=== PATIENT | male | born 1940 | race Asian ===

== ENCOUNTER 2020-05-15 17:52 | Inpatient (IN) | payer MEDICARE ==
[2020-05-15] MEDS ORDERED: Albuterol Sulfate 2.5 mg/3 ml Neb ONE (18:16)
[2020-05-15] MEDS ORDERED: cefTRIAXone\\ROCEPHIN 2 GM VIAL ONE (18:26)
[2020-05-15] MEDS ORDERED: Azithromycin 500 MG VIAL ONE (18:26)
[2020-05-15] MEDS ORDERED: Dexamethasone 10 MG/ML VIAL ONE (18:26)
[2020-05-15] MEDS ORDERED: Magnesium 2 GM/50 ML BAG (IN WATER) ONE (18:26)
[2020-05-15] MEDS ORDERED: Lorazepam 2 MG/ML VIAL ONE ×2 (18:36→19:04)
[2020-05-15 18:37] LABS: #Basophils 0.1 thou/uL (0.0-0.2); #Eosinphils 0.1 thou/uL (0.0-0.7); #Lymphocytes 3.5 thou/uL (1.20-3.40); #Neutrophils 7.9 thou/uL (1.40-6.50); %Basophils 0.7 % (0.0-1.0); %Eosinophils 1.1 % (0.0-10.0); %Lymphocytes 27.6 % (21.0-51.0); %Monocytes 8.2 % (0.0-10.0); %Neutrophils 62.5 % (42.0-75.0); Hemoglobin 14.5 g/dL (14.0-18.0); Mean Corpuscular HGB CONC 31.2 g/dL (32.0-36.0); Mean Corpuscular Hemoglobin 26.7 pg (27.0-31.0); Mean Corpuscular Volume 85.7 fL (78.0-98.0); Mean Platelet Volume 8.3 fL (7.4-10.4); Platelet Count 292 thou/uL (130-400); RBC Distribution Width 13.3 % (11.5-14.5); Red Blood Cell (RBC) Count 5.41 mill/uL (4.70-6.10); White Blood Cell (WBC) Count 12.6 thou/uL (4.8-10.8)
--- NOTE | 2020-05-15 18:42 | RAD ---
Chest AP view INDICATION: Shortness of breath with cough and chest tightness COMPARISON: None FINDINGS: Lungs: There is bilateral lobe airspace disease, right greater than left. Cardiac silhouette: There is cardiomegaly Pulmonary vasculature: There is pulmonary vascular congestion and bilateral interstitial edema Pleural spaces: There are small bilateral pleural effusions. Upper abdomen: No abnormality seen. Osseous structures: No acute osseous abnormality. Additional findings: There is soft tissue calcification overlying the anterior chest wall which is n onspecific. IMPRESSION: 1. Findings suspicious for mild CHF. 2. Bibasilar airspace disease, right greater than left, may reflect airspace edema; however, pneumoni a or aspiration could have a similar appearance. Recommend correlation with patient's clinical examination.
[2020-05-15] MEDS ORDERED: Rocuronium Bromide 10 MG/ML (10ML VIAL) ONE (18:55)
[2020-05-15 18:59] LABS: ALT (SGPT) 34 U/L (8-55); AST (SGOT) 53 U/L (5-34); Albumin 4.3 g/dL (3.4-4.8); Alkaline Phosphatase 80 U/L (40-110); Anion Gap 21 mmol/L (10-20); BUN (Urea Nitrogen) 16 mg/dL (8.4-25.7); Bilirubin, Total 0.9 mg/dL (0.2-1.2); CK (CPK) 622 U/L (30-200); Calc. Creatinine Clearance 0 mL/min (70-130); Calcium 8.9 mg/dL (7.8-10.44); Carbon Dioxide 18 mmol/L (23-31); Chloride 104 mmol/L (98-107); Globulin 2.8 g/dL (2.4-3.5); Glucose 176 mg/dL (83-110); Lipase 20 U/L (8-78); Potassium 3.7 mmol/L (3.5-5.1); Protein, Total 7.1 g/dL (5.8-8.1); Sodium 139 mmol/L (136-145)
[2020-05-15 19:32] LABS: CKMB 21.5 ng/mL (0-6.6)
[2020-05-15] MEDS ORDERED: fentaNYL Citrate/PF 2,000 MCG in Sodium Chloride 0.9% 60 ML IV SCH (19:45)
--- NOTE | 2020-05-15 19:48 | RAD ---
Chest AP view INDICATION: History of central line placement COMPARISON: Prior examination performed on May 15, 2020 at 6:22 PM FINDINGS: Lungs: There is worsening bilateral perihilar airspace disease suspicious for worsening airspace marilia ma. Airspace opacities within both lower lobes persists. Cardiac silhouette: Cardiomegaly is similar Pulmonary vasculature: There is worsening pulmonary vascular congestion Pleural spaces: There are worsening small bilateral pleural effusions, right greater than left Upper abdomen: No abnormality seen. Osseous structures: No acute osseous abnormality. Additional findings: The patient has been intervally intubated. The distal of the ET tube is 4.3 cm from the wei. There is gastric catheter placement with the tip of the catheter is seen near the gastroesophageal junction. Recommend advancement. There is a new left subclavian central venous elan ter projecting in the region of the SVC. No definite pneumothorax is demonstrated. IMPRESSION: 1. Findings suspicious for worsening CHF. 2. Persistent bibasilar airspace opacities may reflect airspace edema, pneumonia or aspiration. 3. Interval intubation with gastric catheter and left subclavian central venous catheter placement. N o pneumothorax is demonstrated. The gastric catheter tip projects in the region of the GE junction. Recommend advancement.
[2020-05-15] MEDS ORDERED: Acetaminophen 650 MG Suppository PR PRN (19:50)
[2020-05-15] MEDS ORDERED: Ondansetron ODT 4 MG TAB PO PRN (19:50)
[2020-05-15] MEDS ORDERED: Ventilator Sedation Protocol 1 EACH FS SCH (19:50)
--- NOTE | 2020-05-15 19:56 | PDOC.HHP ---
Hospitalist HPI - History of Present Illness dyspnea cough History of Present Illness: most of the history was obtain from EMR and ED records, during my evaluation patient was sedated and on MV, no family members were present at the moment of my evaluation. Case of an 79-year-old gentleman with apparent no pmhx of chronic conditions arrives in severe distress with O2 sat 76 and heavy work of breathing with tachypnea labored in the 30s he is able to speak Turkish but not very responsive he is also tachycardic at 160 and blood pressure 190 did not complain of any chest pain no known Covid exposure. patient was initally placed in respiratory support with bipap but did not tolerate well and had to be placed on MV. patient also presented with sepsis paramaters and sepsis bundles where initialled, venancio dixon was called for further evaluation and management. Hospitalist ROS - Review of Systems ROS unobtainable: due to endotracheal tube Hospitalist History - Past Surgical History Other Surgical History: unable to asses due to MV - Family History Other Family History: unable to asses due to MV - Social History Other Social History: unable to asses due to MV - Exam General Appearance: ill appearing Eye: PERRL, anicteric sclera ENT: normocephalic atraumatic, no oropharyngeal lesions Neck: supple, symmetric, no thyromegaly Heart: RRR, no murmur, no gallops, no rubs Respiratory: rales Respiratory - other findings: decreased lung sound Gastrointestinal: soft, non-tender, non-distended, normal bowel sounds Extremities: no cyanosis, no clubbing, no edema Neurological - other findings: unable to asses due to sedations Musculoskeletal: normal tone, no muscle wasting Psychiatric - other findings: sedated Hospitalist Results - Labs Result Diagrams: 05/15/20 18:21 05/15/20 18:21 Lab results: WBC 12.6 thou/uL (4.8-10.8) H 05/15/20 18:21 Hgb 14.5 g/dL (14.0-18.0) 05/15/20 18:21 Hct 46.4 % (42.0-52.0) 05/15/20 18:21 MCV 85.7 fL (78.0-98.0) 05/15/20 18:21 Plt Count 292 thou/uL (130-400) 05/15/20 18:21 Neutrophils % 62.5 % (42.0-75.0) 05/15/20 18:21 Sodium 139 mmol/L (136-145) 05/15/20 18:21 Potassium 3.7 mmol/L (3.5-5.1) 05/15/20 18:21 Chloride 104 mmol/L (98-107) 05/15/20 18:21 Carbon Dioxide 18 mmol/L (23-31) L 05/15/20 18:21 BUN 16 mg/dL (8.4-25.7) 05/15/20 18:21 Creatinine 1.80 mg/dL (0.7-1.3) H 05/15/20 18:21 Glucose 176 mg/dL (83-110) H 05/15/20 18:21 Lactic Acid 8.6 mmol/L (0.5-2.2) H* 05/15/20 18:58 Calcium 8.9 mg/dL (7.8-10.44) 05/15/20 18:21 Total Bilirubin 0.9 mg/dL (0.2-1.2) 05/15/20 18:21 AST 53 U/L (5-34) H 05/15/20 18:21 ALT 34 U/L (8-55) 05/15/20 18:21 Alkaline Phosphatase 80 U/L (40-110) 05/15/20 18:21 Creatine Kinase 622 U/L (30-200) H 05/15/20 18:21 CK-MB (CK-2) 21.5 ng/mL (0-6.6) H* 05/15/20 18:21 Troponin I 11.588 ng/mL (< 0.028) H* 05/15/20 18:21 B-Natriuretic Peptide 1261.2 pg/mL (0-100) H 05/15/20 18:21 Serum Total Protein 7.1 g/dL (5.8-8.1) 05/15/20 18:21 Albumin 4.3 g/dL (3.4-4.8) 05/15/20 18:21 Lipase 20 U/L (8-78) 05/15/20 18:21 Hospitalist H&P A/P - Problem (1) Acute respiratory failure requiring reintubation Code(s): J96.00 - ACUTE RESPIRATORY FAILURE, UNSP W HYPOXIA OR HYPERCAPNIA Status: Acute (2) Sepsis Code(s): A41.9 - SEPSIS, UNSPECIFIED ORGANISM Status: Acute (3) Acute decompensated heart failure Code(s): I50.9 - HEART FAILURE, UNSPECIFIED Status: Acute (4) Pneumonia Code(s): J18.9 - PNEUMONIA, UNSPECIFIED ORGANISM Status: Acute (5) Acute renal failure Status: Acute (6) NSTEMI (non-ST elevated myocardial infarction) Code(s): I21.4 - NON-ST ELEVATION (NSTEMI) MYOCARDIAL INFARCTION Status: Acute - Plan Plan: 79y/o famele with apparent nphx who present acute respiratory failure requiring MV acute respiratory failure - did not tolerate bipap - started on MV - sedation protocol - pulmonology consulted - seems to be of multifactorial etiology, heart failure nstemi pnuemonia sepsis secondary to pneumonia - elevated wbc + Elevated LA + cxr suspicious for pneumonia - sepsis bundles started. 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
[2020-05-15 20:01] LABS: Actual Bicarbonate (HCO3a) 16.8 mEq/L (22-28); Analyzer IN Cardio ER; Base Excess (BEa) -9.3 mEq/L (-2.0 to +3.0); CO2 Tension 37.1 mmHg (35.0-45.0); Calcium, Ionized (arterial) 1.11 mmol/L (1.12-1.30); Carboxyhemoglobin (COHb) 0.1 gm% (0.0-3.0); Hemoglobin (Hb) 13.3 g/dL (14.0-18.0); O2 Tension (PaO2), arterial 110.4 mmHg (> 70.0); Potassium - ABG Lab 3.74 mmol/L (3.70-5.30); pH, Arterial 7.27 (7.35-7.45)
[2020-05-15 20:04] LABS: ALV-art Gradient 556.225 mmHg (0-20); Puncture Site RRA
[2020-05-15] MEDS ORDERED: Metoprolol Tartrate 5 MG/5 ML VIAL ONE (20:06)
[2020-05-15] MEDS ORDERED: Aspirin Chewable 81 MG TAB ONE (20:06)
[2020-05-15] MEDS ORDERED: Enoxaparin Sodium 80 MG/0.8 ML SYRINGE ONE (20:06)
[2020-05-15 20:18] LABS: SARS-CoV-2 NAA Rapid Test Not Detected (NotDetected)
[2020-05-15] MEDS ORDERED: DOBUTamine 500 mg/250 ml 250 ML ONE (21:00)
[2020-05-15 22:35] LABS: Lactic Acid 1.4 mmol/L (0.5-2.2)
[2020-05-15] MEDS: Sodium Chloride 0.9% 1,000 ML IV SCH (23:26)
[2020-05-15] MEDS: Atorvastatin Calcium 40 MG TAB PO SCH (23:29)
[2020-05-15] MEDS: Famotidine/PF 20 mg/2ml Vial SLOW IVP SCH (23:29)
[2020-05-16 00:24] LABS: Bacteria/HPF None Seen HPF (None Seen); Bilirubin Negative (Negative); Blood, Urine Trace (Negative); Clarity Clear (Clear); Glucose, Urine (Dipstick) Normal (Negative); Ketone, Urine 10 mg/dL (Negative); Leukocyte Negative Leu/uL (Negative); Nitrite Negative (Negative); Protein, Urine (Dipstick) 30 mg/dL (Neg-Trace); Squamous Epithelial 0-3 HPF (0-3); Urobilinogen Normal mg/dL (Less than 2); WBC/HPF 0-3 HPF (0-3); pH, Urine 5.5 (5.0-9.0)
[2020-05-16 00:26] LABS: Urine Culture Reflex No No
[2020-05-16 01:24] LABS: Critical Call Chem Troponin I RESULT DECREASING; Troponin I 10.127 ng/mL (< 0.028)
[2020-05-16 04:04] LABS: Hemoglobin A1c 5.3 % (4.0-6.0)
[2020-05-16 04:13] LABS: Band 3 % (5-11); Hemoglobin 11.6 g/dL (14.0-18.0); Hypochromia SLIGHT = 6-15 cells (100X) (0-5/hpf); Lymphocytes 3 % (21-51); MDiff Complete? YES; Mean Corpuscular HGB CONC 32.7 g/dL (32.0-36.0); Mean Corpuscular Hemoglobin 27.9 pg (27.0-31.0); Mean Corpuscular Volume 85.2 fL (78.0-98.0); Mean Platelet Volume 8.2 fL (7.4-10.4); Monocytes 2 % (0-10); Neutrophil 91 % (42-75); Platelet Count 212 thou/uL (130-400); Platelet Morphology Comment Appears Adequate; Reactive Lymphocytes 1 % (0-10); Red Blood Cell (RBC) Count 4.16 mill/uL (4.70-6.10); White Blood Cell (WBC) Count 9.7 thou/uL (4.8-10.8)
[2020-05-16] MEDS ORDERED: Fentanyl BOLUS 250 ML IVPB PRN (04:15)
[2020-05-16] MEDS ORDERED: fentaNYL Citrate/PF 2,000 MCG in Sodium Chloride 0.9% 60 ML IV SCH (04:15)
[2020-05-16] MEDS ORDERED: Propofol BOLUS 1,000 MG/100 ML VIAL IV PRN (04:15)
[2020-05-16] MEDS ORDERED: DISCONTINUE PREVIOUS NARCOTIC PAIN MEDICATIONS AND BENZODIAZEPINES FS SCH (04:15)
[2020-05-16] MEDS ORDERED: Propofol 1,000 MG/100 ML VIAL IV PRN (04:15)
[2020-05-16] MEDS: DOBUTamine 500 mg/250 ml 500 MG in Premix Bag 1 BAG IVPB SCH ×2 (04:37→17:59)
[2020-05-16 07:50] LABS: ALT (SGPT) 27 U/L (8-55); AST (SGOT) 64 U/L (5-34); Albumin 3.1 g/dL (3.4-4.8); Alkaline Phosphatase 56 U/L (40-110); Anion Gap 16 mmol/L (10-20); BUN (Urea Nitrogen) 18 mg/dL (8.4-25.7); Bilirubin, Total 0.6 mg/dL (0.2-1.2); Calc. Creatinine Clearance 46 mL/min (70-130); Calcium 7.6 mg/dL (7.8-10.44); Carbon Dioxide 18 mmol/L (23-31); Cardiac Risk 6.8 (Less than 4.5); Chloride 110 mmol/L (98-107); Cholesterol 176 mg/dl (< 200 Desired); Globulin 2.5 g/dL (2.4-3.5); Glucose 138 mg/dL (83-110); HDL Cholesterol 26 mg/dL (>60 Neg Risk); LDL Cholesterol, Calculated 128 mg/dL; Magnesium 2.2 mg/dL (1.6-2.6); Potassium 4.5 mmol/L (3.5-5.1); Protein, Total 5.6 g/dL (5.8-8.1); Sodium 139 mmol/L (136-145); Triglycerides 110 mg/dL (Less than 150)
[2020-05-16] MEDS: Lorazepam 2 MG/ML VIAL SLOW IVP PRN ×2 (08:14→14:26)
[2020-05-16 08:35] LABS: Actual Bicarbonate (HCO3a) 19.5 mEq/L (22-28); Base Excess (BEa) -4.6 mEq/L (-2.0 to +3.0); CO2 Tension 32.9 mmHg (35.0-45.0); Carboxyhemoglobin (COHb) 0.2 gm% (0.0-3.0); Hemoglobin (Hb) 11.9 g/dL (14.0-18.0); O2 Tension (PaO2), arterial 118.4 mmHg (> 70.0); Potassium - ABG Lab 4.19 mmol/L (3.70-5.30); pH, Arterial 7.39 (7.35-7.45)
[2020-05-16 08:37] LABS: ALV-art Gradient 196.975 mmHg (0-20); Puncture Site LRA
--- NOTE | 2020-05-16 08:44 | ULT ---
Exam: Bilateral renal ultrasound complete: HISTORY: Acute kidney injury COMPARISON: None FINDINGS: Right kidney: 8.4 x 3.6 x 4.5 cm Left kidney: 9.7 x 4.6 x 4.2 cm No renal hydronephrosis. Several echogenic foci within the left kidney, nonspecific, one of these may have an associated faint shadowing could represent a calculus. No solid or cystic renal mass. Carter catheter within the bladder. IMPRESSION: Nonspecific echogenic foci within the left kidney one of which may be shadowing and represent a nonob structing renal calculus. Depending upon concern, follow-up CT abdomen and pelvis without IV contrast should be considered for further assessment.
[2020-05-16] MEDS ORDERED: FLU VACC QS2020-21(65YR UP)/PF 240 MCG/0.7 ML SYRINGE IM ONE (09:00)
[2020-05-16] MEDS: Enoxaparin Sodium 80 MG/0.8 ML SYRINGE SC SCH (09:13)
[2020-05-16] MEDS: Aspirin 325 MG TAB PO SCH (09:14)
--- NOTE | 2020-05-16 09:39 | CON ---
DATE OF CONSULTATION: 05/16/2020 SUBJECTIVE: Mr. Lester is a 79-year-old male, who presented to the ER for an acute respiratory failure. He was found to be hypoxemic. He was subsequently intubated and placed on ventilator support. During the initial workup, he was noted to have an acute kidney injury as well as an elevated troponin I. We are now following up this patient for the acute kidney injury. REVIEW OF SYSTEMS: Not obtainable since the patient is intubated on ventilator support. As per history, the patient was experiencing shortness of breath. MEDICATIONS: The patient is currently on IV dobutamine drip. Also on; 1. Aspirin 325 mg tablet once a day. 2. Azithromycin 500 mg IV q.24 hours. 3. Ceftriaxone 2 g IV q.24 hours. 4. Lovenox 70 mg once a day. 5. Diprivan drip. PAST MEDICAL HISTORY: No significant medical problems. PAST SURGICAL HISTORY: Unknown. ALLERGIES: UNKNOWN. SOCIAL HISTORY: The patient lives in [place]. Has one child, Benitez who lives in [place]. FAMILY HISTORY: Noncontributory. PHYSICAL EXAMINATION: VITAL SIGNS: Blood pressure is noted at 109/72 with a heart rate of 110, FiO2 at 50%, respiratory rate 16. GENERAL: The patient is sedated, intubated on ventilator support. SKIN: Adequate turgor. HEENT: He has pinkish conjunctivae. Anicteric sclerae. No neck mass. No carotid bruits. No JVD. CHEST: No deformities. LUNGS: Harsh breath sounds. Bibasilar crackles. HEART: Tachycardic. No murmur. No gallops. No rubs. ABDOMEN: Globular, soft, nontender. No masses. EXTREMITIES: No edema. No deformities. NEUROLOGICAL: The patient is sedated. LABORATORY DATA: Laboratories of May 16, 2020; white count 9.7, hemoglobin 11.6. Sodium 139, potassium 4.5, chloride 110, carbon dioxide 18, BUN 18, creatinine 1.41, glucose 138, calcium 7.6, phosphorus 3. AST 64, ALT 27. Troponin I is 12.1. Albumin 3.1. COVID testing was noted to be negative. On May 15, 2020, creatinine 1.8. Chest x-ray shows diffuse infiltrates. Renal ultrasound showed no obstruction. Finding of calcifications that could be from nephrolithiasis. Urinalysis showed positive for granular casts, specific gravity was 1.020, rbc 11 to 20, wbc 0 to 3, protein is 30. ASSESSMENT AND PLAN: 1. Acute kidney injury-consider the possibility of a superimposed acute tubular necrosis. The finding of granular casts suggestive of an acute tubular injury. Creatinine is actually improved with initiation of IV dobutamine suggesting there he is also a prerenal component with his renal dysfunction. Creatinine improved from 1.8 to 1.4. There is no indication for any emergency dialysis with this patient. Continue supportive care. 2. NSTEMI-Cardiology consult has been done. Continue supportive care. Consideration for cardiac cath is a possibility with this patient. Please note, this patient based on the history, never has followed up with any physician. Overall prognosis remains guarded. Thank you for the consult. We will continue to follow. Job ID: [id number]
--- NOTE | 2020-05-16 10:02 | RAD ---
EXAM: CHEST ONE VIEW HISTORY: Respiratory failure, pneumonia. COMPARISON: 05/15/2020 FINDINGS: Endotracheal tube, nasogastric tube, and left subclavian central venous catheter remain in place and unchanged in position. Cardiac silhouette is magnified by projection but stable in size. There is pulmonary vascular congestion. Again noted are bilateral pleural effusions which do appear increased on the left. Bibasilar opacities are present which may represent associated atelectasis, but pneumonia at either lung base is a possibility. Continued follow-up to resolution is recommended. No other interval change. IMPRESSION: 1. Bilateral pleural effusions with interval increase in left pleural effusion. 2. Bibasilar parenchymal opacities which could be related to associated passive atelectasis, but pneu monia is a possibility. Follow-up to complete resolution is recommended. 3. Pulmonary vascular congestion. 4. Lines and tubes stable in position.
--- NOTE | 2020-05-16 14:00 | PRG ---
DATE OF SERVICE: 05/16/2020 SUBJECTIVE: Mr. Lester is currently intubated and sedated. His son is currently present. I discussed the case with his son in detail. According to son, he has no significant past medical history, although has avoided seeing doctors or providers in the past. He states that he complained of increased shortness of breath over the last several days and felt that he had COVID. He was trying to get a COVID test. After he became acutely short of breath, he phoned his daughter, who picked him up and brought him to the emergency room. According to the son, again, there was no significant past medical history or surgeries in the past. No tobacco history. OBJECTIVE: GENERAL: He is currently intubated, sedated. VITAL SIGNS: Blood pressure 88 systolic, currently on dopamine and dobutamine. NEUROLOGIC: The patient is alert and oriented x3 with no focal neurologic deficits. HEENT: Sclerae without icterus. Mouth has moist mucous membranes with normal pallor. NECK: No JVD. Carotid upstroke brisk. No bruits bilaterally. LUNGS: Clear to auscultation with unlabored respirations. BACK: No scoliosis or kyphosis. CARDIAC: Regular rate and rhythm with normal S1 and S2. No S3 or S4 noted. No significant rubs, murmurs, thrills, or gallops noted throughout the precordium. PMI is not displaced. There is no parasternal heave. ABDOMEN: Soft, nontender, nondistended. No peritoneal signs present. No hepatosplenomegaly. No abnormal striae. EXTREMITIES: 2+ femoral and 2+ dorsalis pedis pulses. No cyanosis, clubbing, or edema. SKIN: No gross abnormalities. PERTINENT LABORATORY DATA: Include a followup troponin level of 12.1, creatinine of 1.4. IMPRESSION: 1. Acute systolic heart failure. 2. Elevated troponin. 3. Respiratory failure. RECOMMENDATIONS: At this point, we would recommend continued stability. Dr. Jimenes has been consulted. I discussed the case with Dr. Martín Jimenes. Mr. Lester currently has a living will in place and does not wish to have cardioversion or compressions if needed per son. I would certainly honor his wishes. As far as intubation, will remain intubated given this information was not provided upon arrival to the emergency room. Continue to support. We will check a CT scan of his chest. Prognosis continues to remain guarded. Continue Zithromax in addition to Rocephin. He is also on Lovenox subcu. Job ID: [id number]
[2020-05-16] MEDS ORDERED: Lorazepam 2 MG/ML VIAL ONE (14:04)
--- NOTE | 2020-05-16 14:07 | CON ---
DATE OF CONSULTATION: 05/15/2020 REASON FOR CONSULTATION: Elevated troponin. HISTORY OF PRESENT ILLNESS: Mr. Lester is an unfortunate gentleman who recently presented to the emergency room with acute onset shortness of breath. The history is unknown. He was dropped off by a family member. There is no family available for discussion. The patient was currently intubated. There was no information in the hospital record on patient. PAST MEDICAL HISTORY: Unknown. MEDICATIONS: Unknown. ALLERGIES: UNKNOWN. REVIEW OF SYSTEMS: Unobtainable. He is currently intubated, sedated. PHYSICAL EXAMINATION: GENERAL: The patient is currently intubated, sedated. VITAL SIGNS: Blood pressure 78/55, heart rate 91, respirations 20. NEUROLOGIC: The patient is alert and oriented x3 with no focal neurologic deficits. HEENT: Sclerae without icterus. Mouth has moist mucous membranes with normal pallor. NECK: No JVD. Carotid upstroke brisk. No bruits bilaterally. CHEST: Calcified right and left breast area. LUNGS: Clear to auscultation with unlabored respirations. BACK: No scoliosis or kyphosis. CARDIAC: Regular rate and rhythm with normal S1 and S2. No S3 or S4 noted. No significant rubs, murmurs, thrills, or gallops noted throughout the precordium. PMI is not displaced. There is no parasternal heave. ABDOMEN: Soft, nontender, nondistended. No peritoneal signs present. No hepatosplenomegaly. No abnormal striae. EXTREMITIES: 2+ femoral and 2+ dorsalis pedis pulses. No cyanosis, clubbing, or edema. SKIN: No gross abnormalities. PERTINENT LABS: Include a white blood cell count of 12.6, platelet count 292. Creatinine 1.8 with GFR of 37. CK of 622, CK-MB of 21, troponin 11, BNP of 1261, lactic acid 8.6. Initial EKG shows sinus tachycardia with no acute ST-T wave changes. Followup EKG shows sinus rhythm with no acute ST wave changes present. IMPRESSION: 1. Respiratory failure. 2. Elevated troponin. 3. Elevated BNP. RECOMMENDATIONS: At this point, Mr. Lester's troponin was elevated. There are no current signs on his EKG of an acute process. The initial thought from the ER was this is a presentation of COVID. The patient's COVID status is negative. Given his blood pressure of 78 systolic, would recommend pressure support. Dopamine/dobutamine had been added. May consider IV fluids, but this may also be the presentation of congestive heart failure. The patient's prognosis appears guarded. I did spend 35 minutes of critical care time discussing the case with extended medical staff in addition to Dr. Asad Kasper. Job ID: [id number]
[2020-05-16] MEDS: Sodium Chloride 0.9% 1,000 ML IV SCH (14:26)
--- NOTE | 2020-05-16 14:37 | CT ---
CT CHEST WITH CONTRAST CLINICAL INDICATION: CHF. Pneumonia versus heart failure. COMPARISON: None FINDINGS: Aorta: Vascular calcifications are seen in the thoracic aorta and involving the coronary arteries. Va scular structures are limited due to lack of intravenous contrast, but the thoracic aorta is normal in caliber. Lungs: Moderately large bilateral pleural effusions are seen with the areas of consolidation which pr obably represent passive atelectasis. However, pneumonia cannot be entirely excluded. Calcified granuloma is present at each lung base. Mediastinum: Endotracheal tube is noted in place which is of above the level of the wei. A left nixon bclavian central venous catheter is noted in place with tip in the proximal SVC. Nasogastric tube is noted in place with the tip in the region of the cardia of the stomach. Nasogastric tube should be mildly advanced. Lack of intravenous contrast limits evaluation of mediastinal structures, but no enlarged lymph nodes are appreciated. The heart is mildly enlarged. Thyroid gland: Grossly normal nonenhanced CT appearance where visualized. Osseous structures: Degenerative changes are seen in the spine. No suspicious lytic or sclerotic osse ous lesions are identified. Chest wall: There are multiple increased density foci seen scattered throughout the anterior chest wa ll subcutaneous soft tissues suggestive of bilateral silicone injections. Associated masslike lower attenuation areas are present which may related to associated reactive changes related to silicone in jection. Upper abdomen: Few nonobstructing calculi are seen in the superior pole left kidney largest measuring approximately 4 mm. A 1.1 cm hypodense cystic appearing lesion is seen lateral aspect midportion left kidney which is difficult to further characterize. Calcified granuloma is seen in the spleen. Bilateral adrenal glands have a normal appearance. IMPRESSION: 1. Moderately large bilateral pleural effusions with associated consolidation bilaterally. Areas of c onsolidation are likely attributable to passive atelectasis. Associated pneumonia would be difficult to entirely exclude. Only a small amount of aerated lung is present similar which is relate d to expiratory phase of imaging. 2. Nasogastric tube noted in place with the tip in the region of the gastric cardia. Nasogastric tube should be mildly advanced. 3. Endotracheal tube and left subclavian central venous catheter is noted in place. 4. Findings most compatible with multiple silicone injections involving the anterior chest wall subcu taneous soft tissues with associated inflammatory reaction. 5. Nonobstructing left renal calculi with difficult to characterize hypodense lesion left kidney.
[2020-05-16] MEDS: cefTRIAXone\\ROCEPHIN 2 GM in Sodium Chloride 0.9% 100 ML IVPB SCH (17:46)
--- NOTE | 2020-05-16 19:13 | PDOC.HOSPP ---
- Subjective Encounter Date: 05/16/20 Encounter Time: 19:15 Subjective: f/u for acute hypoxic resp failure/NSTEMI on mech ventilation and receiving ASA/Lipitor/Dobutamine/Lovenox/Zithromax/Rocephin. - Objective Vital Signs & Weight: Vital Signs (12 hours) Temp Pulse Resp BP Pulse Ox 05/16/20 18:00 16 05/16/20 16:00 16 05/16/20 14:40 113 H 92/62 05/16/20 14:00 16 05/16/20 13:02 110 H 86/54 L 05/16/20 12:00 99.5 F 16 05/16/20 10:36 108 H 93/54 L 05/16/20 10:00 16 05/16/20 08:27 110 H 109/72 05/16/20 08:00 16 05/16/20 07:51 97 Weight Admit Weight 165 lb Weight 165 lb 12.602 oz Most Recent Monitor Data Heart Rate from ECG 115 NIBP 84/51 NIBP BP-Mean 62 Respiration from ECG 16 SpO2 100 I&O: 05/15/20 05/16/20 05/17/20 06:59 06:59 06:59 Intake Total 561 1367.8 Output Total 495 490 Balance 66 877.8 Result Diagrams: 05/16/20 03:35 05/16/20 03:35 Additional Labs: Accuchecks 05/16/20 05/16/20 05/16/20 18:04 11:52 04:59 POC Glucose 101 H 111 H 129 H 05/15/20 23:17 POC Glucose 130 H Microbiology 05/15/20 18:58 Venous blood - Right Hand Blood Culture - Preliminary Specimen has been received and culture in progress. No Growth to date. 05/15/20 18:58 Venous blood - Right Arm Blood Culture - Preliminary Specimen has been received and culture in progress. No Growth to date. Laboratory Tests 05/15/20 05/15/20 05/15/20 18:20 18:21 18:21 WBC Hgb D-Dimer Creatinine 1.80 H Hemoglobin A1c Lactic Acid Phosphorus Magnesium Troponin I 11.588 H* B-Natriuretic Peptide Lipase 20 SARS-CoV-2 Rap RNA(RT-PCR) Not Detected 05/15/20 05/15/20 05/15/20 18:21 18:21 18:21 WBC 12.6 H Hgb 14.5 D-Dimer 3.15 H Creatinine Hemoglobin A1c Lactic Acid Phosphorus Magnesium Troponin I B-Natriuretic Peptide 1261.2 H Lipase SARS-CoV-2 Rap RNA(RT-PCR) 05/15/20 05/15/20 05/16/20 18:58 21:58 00:48 WBC Hgb D-Dimer Creatinine Hemoglobin A1c Lactic Acid 8.6 H* 1.4 Phosphorus Magnesium Troponin I 10.127 H* B-Natriuretic Peptide Lipase SARS-CoV-2 Rap RNA(RT-PCR) 05/16/20 05/16/20 05/16/20 03:35 03:35 03:35 WBC Hgb D-Dimer Creatinine Hemoglobin A1c 5.3 Lactic Acid Phosphorus 3.0 Magnesium 2.2 Troponin I 12.150 H* B-Natriuretic Peptide Lipase SARS-CoV-2 Rap RNA(RT-PCR) Radiology Reviewed by me: Yes (CT Chest - bilat effusions/atelectasis/lines/tubes in place) EKG Reviewed by me: Yes (Tele - Sinus tachycardia) Hospitalist ROS - Medication Medications: Active Medications Generic Name Dose Route Start Last Admin Trade Name Freq PRN Reason Stop Dose Admin Aspirin 325 mg 05/16/20 09:00 05/16/20 09:14 Aspirin 325 Mg Tab PO 325 mg DAILY AUGUST Administration Atorvastatin Calcium 40 mg 05/15/20 21:00 05/15/20 23:29 Atorvastatin Calcium 40 Mg Tab PO 40 mg HS AUGUST Administration Enoxaparin Sodium 70 mg 05/16/20 09:00 05/16/20 09:13 Enoxaparin Sodium 80 Mg/0.8 Ml Syringe SC 70 mg 0900 AUGUST Administration Famotidine 20 mg 05/15/20 21:00 05/15/20 23:29 Famotidine/Pf 20 Mg/2ml Vial SLOW IVP 20 mg QPM AUGUST Administration Sodium Chloride 1,000 mls @ 70 mls/hr 05/15/20 20:00 05/16/20 14:26 Normal Saline 0.9% IV 1,000 mls .[id number] AUGUST Administration Ceftriaxone Sodium 2 gm/ 100 mls @ 200 mls/hr 05/16/20 18:00 05/16/20 17:46 Sodium Chloride IVPB 100 mls Q24HR AUGUST Administration Dobutamine HCl/Dextrose 500 mg 250 mls @ 0 mls/hr 05/16/20 00:15 05/16/20 17:59 / Device IVPB 250 mls INF AUGUST Administration Protocol As Directed Fentanyl Citrate 2,000 mcg/ 100 mls @ 0 mls/hr 05/16/20 04:15 05/16/20 18:21 Sodium Chloride IV 06/15/20 04:15 100 mls INF AUGUST Administration Protocol Per Protocol Lorazepam 2 mg 05/16/20 04:15 05/16/20 14:26 Lorazepam 2 Mg/Ml Vial SLOW IVP 06/15/20 04:15 2 mg Q1H PRN Administration Breakthrough agitation Sodium Chloride 10 ml 05/15/20 21:00 05/16/20 08:16 Flush - Normal Saline 10 Ml Syringe IVF 10 ml Q12HR AUGUST Administration - Exam General - other findings: sedate on mech vent ENT: normocephalic atraumatic, no oropharyngeal lesions Neck: supple, symmetric, no JVD, no thyromegaly, no lymphadenopathy Heart: normal peripheral pulses Heart - other findings: S1, S2 Respiratory - other findings: diminished in bases bilat, + crackles Gastrointestinal: soft, non-tender, non-distended, normal bowel sounds, no palpable masses Neurological - other findings: sedate on mech vent Musculoskeletal: generalized weakness Psychiatric: somnolent, lethargic Hosp A/P (1) Acute respiratory failure with hypoxia Code(s): J96.01 - ACUTE RESPIRATORY FAILURE WITH HYPOXIA Status: Acute Plan: Continue mech ventilation, general pulm supportive mgmt (2) NSTEMI (non-ST elevated myocardial infarction) Code(s): I21.4 - NON-ST ELEVATION (NSTEMI) MYOCARDIAL INFARCTION Status: Acute Plan: Continue med mgmt, ASA/Lipitor/Dobutamine/Lovenox, likely will need heart cath when stabilizing, 2D echo pending (3) Acute decompensated heart failure Code(s): I50.9 - HEART FAILURE, UNSPECIFIED Status: Acute Plan: 2D echo pending, continue medical mgmt, remains hypotensive and unable to tolerate diuretics, continue Dobutamine (4) Acute renal failure Status: Acute Plan: Supportive mgmt, avoid nephrotoxic meds and limit contrast exposure (5) Sepsis Code(s): A41.9 - SEPSIS, UNSPECIFIED ORGANISM Status: Acute Plan: Suspect due to PNA, continue Zithromax/Rocephin (6) Pneumonia Code(s): J18.9 - PNEUMONIA, UNSPECIFIED ORGANISM Status: Acute Plan: Suspected, continue Zithromax/Rocephin, general pulm support - Plan continue antibiotics, manager social responsibility, respiratory therapy, DVT proph w/SCDs Consults: Palliative Care Continue critical support Continue Mech ventilation SIMV Continue ASA/Lipitor/Lovenox Continue pressor support with Dobutamine 2D echo pending AM lab: BMP, CBC, ABG PCXR in am
[2020-05-16] MEDS: Azithromycin 500 MG in Sodium Chloride 0.9% 250 ML 250 ML IVPB SCH (20:26)
[2020-05-16] MEDS: Famotidine/PF 20 mg/2ml Vial SLOW IVP SCH (20:27)
[2020-05-16] MEDS: Atorvastatin Calcium 40 MG TAB PO SCH (20:27)
--- NOTE | 2020-05-17 00:27 | CON ---
DATE OF CONSULTATION: 05/16/2020 HISTORY OF PRESENT ILLNESS: Mr. Lester is a 79-year-old male. He presented with shortness of breath and was subsequently intubated. I was consulted to assist in his management. PAST MEDICAL HISTORY: Unknown. FAMILY HISTORY: Unknown. SOCIAL HISTORY: Unknown. REVIEW OF SYSTEMS: Not obtainable. PHYSICAL EXAMINATION: VITAL SIGNS: Blood pressures in the 90s, heart rate is 113, respiratory rates in the 20s. HEENT: Pupils react. Sclerae are anicteric. He would wake up and move all his extremities. NECK: Supple. Trachea is in the midline. CHEST WALL: Remarkable for dense breast tissue. LUNGS: Clear. Decreased breath sounds at his bases laterally. HEART: Regular rhythm. S1, S2 are normal. ABDOMEN: Soft and nontender. EXTREMITIES: Without clubbing, cyanosis, or edema. LABORATORY DATA: White count 9.7, hemoglobin 11.6, platelets 212. Sodium 139, potassium 4.5, chloride 110, bicarb 18, BUN 18, creatinine 1.41, glucose 138. Chest x-ray suggests large bilateral effusions. Turning down for a noncontrast chest CT to see how much was infiltrate and how much was effusion. It appears that majority of this is bilateral effusions with compressive atelectasis. Kidney size is normal. Echocardiogram is pending. BNP was over a 1000. IMPRESSION: Congestive heart failure with bilateral effusions. Interesting finding is that he has a dense calcification in his breast tissue bilaterally suggesting that he has had silicone injections in the past. We have seen this once before, but this resembles a CAT scan I saw many years ago from silicone injections instead of implants. We are setting up a drain on one side of his chest tomorrow, which would dramatically decrease his work of breathing and may allow us to wean and extubate him tomorrow. CRITICAL CARE TIME: 30 minutes. Job ID: [id number] [facility]
[2020-05-17] MEDS: DOBUTamine 500 mg/250 ml 500 MG in Premix Bag 1 BAG IVPB SCH ×2 (02:56→11:51)
[2020-05-17] MEDS: Sodium Chloride 0.9% 1,000 ML IV SCH ×3 (03:12→21:12)
[2020-05-17 06:38] LABS: #Lymphocytes 1.2 thou/uL (1.20-3.40); #Monocytes 1.1 thou/uL (0.11-0.59); #Neutrophils 7.7 thou/uL (1.40-6.50); %Basophils 0.3 % (0.0-1.0); %Eosinophils 0.2 % (0.0-10.0); %Lymphocytes 11.5 % (21.0-51.0); %Monocytes 11.1 % (0.0-10.0); %Neutrophils 76.9 % (42.0-75.0); Hemoglobin 10.3 g/dL (14.0-18.0); Mean Corpuscular HGB CONC 32.7 g/dL (32.0-36.0); Mean Corpuscular Hemoglobin 27.8 pg (27.0-31.0); Mean Platelet Volume 7.9 fL (7.4-10.4); Platelet Count 182 thou/uL (130-400); RBC Distribution Width 13.1 % (11.5-14.5); Red Blood Cell (RBC) Count 3.69 mill/uL (4.70-6.10)
[2020-05-17 06:57] LABS: Anion Gap 13 mmol/L (10-20); BUN (Urea Nitrogen) 23 mg/dL (8.4-25.7); Calc. Creatinine Clearance 36 mL/min (70-130); Calcium 7.4 mg/dL (7.8-10.44); Carbon Dioxide 20 mmol/L (23-31); Chloride 109 mmol/L (98-107); Glucose 96 mg/dL (83-110); Potassium 3.7 mmol/L (3.5-5.1); Sodium 138 mmol/L (136-145)
[2020-05-17 07:45] LABS: CO2 Tension 29.5 mmHg (35.0-45.0); Calcium, Ionized (arterial) 1.11 mmol/L (1.12-1.30); Hemoglobin (Hb) 10.9 g/dL (14.0-18.0); O2 Tension (PaO2), arterial 92.8 mmHg (> 70.0); Potassium - ABG Lab 3.73 mmol/L (3.70-5.30); pH, Arterial 7.45 (7.35-7.45)
[2020-05-17 07:46] LABS: ALV-art Gradient 119.875 mmHg (0-20); Puncture Site RRA
--- NOTE | 2020-05-17 08:09 | RAD ---
Portable frontal chest radiograph: 05/17/2020 COMPARISON: 05/16/2020 HISTORY: Myocardial infarction, pneumonia, congestive heart failure FINDINGS: Endotracheal tube, nasogastric tube, and left subclavian vascular catheter present, unchang ed. There is prominent perihilar and bibasilar hazy increased density with obscuration of the hemidiaphragms and blunting of the costophrenic angles consistent with perihilar and bibasilar pleura l and parenchymal opacity, not significantly changed. IMPRESSION: Stable appearance of the chest suggesting moderate bilateral pleural effusions with nonsp ecific associated pulmonary parenchymal opacity which may reflect edema, infectious pneumonitis, and/or aspiration.
--- NOTE | 2020-05-17 09:25 | RAD ---
PORTABLE CHEST: Date: 05/17/2020 HISTORY: Post thoracentesis. Comparison with film from earlier this morning. FINDINGS/IMPRESSION: Bilateral effusions remain, although reduced from the earlier exam. No pneumothorax identified. ET tube and NG tube remain in place. Central line unchanged. POS: AGW
[2020-05-17] MEDS: Aspirin 325 MG TAB PO SCH (09:33)
[2020-05-17] MEDS: Enoxaparin Sodium 80 MG/0.8 ML SYRINGE SC SCH (09:35)
--- NOTE | 2020-05-17 09:38 | PRG ---
DATE OF SERVICE: 05/17/2020 SUBJECTIVE: Mr. Lester is a 79-year-old male, who was initially admitted for acute respiratory failure secondary to a presumed CHF. He was subsequently intubated and placed on ventilator support. He also was found to have a significantly elevated troponin I. We are following up this patient for his acute kidney injury. Review of his urine sediment suggests he has superimposed acute tubular necrosis for his acute renal failure. No acute events noted last night. A chest CT was done on May 16, 2020. Chest CT showed moderately large bilateral pleural effusion with consolidation - most likely from atelectasis. There was a finding of nonobstructing left renal calculi. MEDICATIONS: Medications of May 17, 2020, were reviewed. LABORATORY DATA: Laboratories of May 17, 2020; white count 10, hemoglobin 10.3, hematocrit 31.4. Sodium 138, potassium 3.7, chloride 109, carbon dioxide 20, BUN 23, creatinine 1.8, calcium 7.4. PHYSICAL EXAMINATION: VITAL SIGNS: Blood pressure 120/70, heart rate 111, respiratory rate 16, O2 saturation 98%, temperature 99.7. GENERAL: Sedated, intubated, on ventilator support. SKIN: Adequate turgor. HEENT: Pinkish conjunctivae. Anicteric sclerae. NECK: No neck mass. No carotid bruits. No JVD. LUNGS: Decreased breath sounds. HEART: Tachycardic. ABDOMEN: Globular, soft, nontender. EXTREMITIES: No edema. No deformities. ASSESSMENT AND PLAN: 1. Acute kidney injury - this is probably secondary to an ischemic acute tubular necrosis as suggested by urine sediment findings of pigmented granular casts. Management, supportive. Renal function slightly worsened today from a creatinine 1.4 yesterday to 1.8. Continue supportive care. The patient is still diuresing. Last 24 hours urine output of about 645 mL of urine output. At the present time, there is no indication for any dialytic intervention. 2. Sxh-XL-[id number] myocardial infarction - Cardiology is following. 3. Acute respiratory failure. Pulmonary is following. Agree with current management. Continue supportive care. Job ID: [id number] [facility]
[2020-05-17 09:55] LABS: Pleural Fluid, Protein 1.8 g/dL; RBC Count-Automated (BF) 417 /cu.mm; WBC/Nucleated-Auto (BF) 274 uL
[2020-05-17 10:27] LABS: BF Color Yellow; Body Fluid Source Pleural Fluid; Clarity Hazy (Clear); Tube # EDTA
[2020-05-17 13:53] LABS: BF Segmented Neutrophils 11 %; Cell Count Non Hematic 74 %; Lymphocytes 15 %
--- NOTE | 2020-05-17 16:02 | PRG ---
DATE OF SERVICE: 05/17/2020 SUBJECTIVE: Navjot Lester is slow to wake up today. His son says he has never had sedative drugs that may be part of the reason. OBJECTIVE: VITAL SIGNS: Heart rate is 110, blood pressure 91/66, FiO2 is at 35, respiratory rates in the teens. LUNGS: Remarkable for decreased breath sounds at both bases. HEART: Regular rhythm. ABDOMEN: Soft. LABORATORY DATA: White count 10, hemoglobin 10, platelets 182. Creatinine is 1.8 today, 1.4 yesterday, 1.8 the day before. Intake and output, positive 2228 mL. Echocardiogram shows ejection fraction of 30% with asymmetric wall motion. I recommended thoracentesis and weaning once he is fully awake. Critical care time 30 min. excluding procedure. Job ID: [id number] [facility]
[2020-05-17] MEDS: cefTRIAXone\\ROCEPHIN 2 GM in Sodium Chloride 0.9% 100 ML IVPB SCH (16:29)
--- NOTE | 2020-05-17 16:30 | PDOC.HOSPP ---
- Subjective Encounter Date: 05/17/20 Encounter Time: 16:10 Subjective: f/u for acute hypoxic resp failure/CHF/NSTEMI s/p thoracentesis today with 450ml removed. Nursing reports pt waking up slowly from sedation but unable to wean off mech vent. Son at bedside. - Objective Vital Signs & Weight: Vital Signs (12 hours) Temp Pulse Resp BP Pulse Ox 05/17/20 14:48 110 H 91/66 05/17/20 14:00 13 05/17/20 12:00 15 05/17/20 11:09 110 H 89/55 L 05/17/20 10:00 16 05/17/20 08:00 16 05/17/20 07:57 97 05/17/20 07:39 113 H 05/17/20 07:00 99.2 F Weight Admit Weight 165 lb Weight 165 lb 12.602 oz Most Recent Monitor Data Heart Rate from ECG 108 NIBP 97/63 NIBP BP-Mean 74 Respiration from ECG 15 SpO2 99 I&O: 05/16/20 05/17/20 05/18/20 06:59 06:59 06:59 Intake Total 561 3123.8 Output Total 495 895 275 Balance 66 2228.8 -275 Result Diagrams: 05/17/20 06:24 05/17/20 06:24 Additional Labs: Accuchecks 05/17/20 05/17/20 05/16/20 06:26 00:05 18:04 POC Glucose 87 95 101 H Microbiology 05/17/20 08:55 Pleural fluid Body Fluid Culture - Preliminary 05/15/20 18:58 Venous blood - Right Hand Blood Culture - Preliminary Specimen has been received and culture in progress. No Growth to date. 05/15/20 18:58 Venous blood - Right Hand Blood Culture - Preliminary NO GROWTH AT 48 HOURS 05/15/20 18:58 Venous blood - Right Arm Blood Culture - Preliminary Specimen has been received and culture in progress. No Growth to date. 05/15/20 18:58 Venous blood - Right Arm Blood Culture - Preliminary NO GROWTH AT 48 HOURS Laboratory Tests 05/15/20 05/15/20 05/15/20 18:20 18:21 18:21 WBC Hgb D-Dimer Creatinine 1.80 H Hemoglobin A1c Lactic Acid Phosphorus Magnesium Troponin I 11.588 H* B-Natriuretic Peptide Lipase 20 SARS-CoV-2 Rap RNA(RT-PCR) Not Detected 05/15/20 05/15/20 05/15/20 18:21 18:21 18:21 WBC 12.6 H Hgb 14.5 D-Dimer 3.15 H Creatinine Hemoglobin A1c Lactic Acid Phosphorus Magnesium Troponin I B-Natriuretic Peptide 1261.2 H Lipase SARS-CoV-2 Rap RNA(RT-PCR) 05/15/20 05/15/20 05/16/20 18:58 21:58 00:48 WBC Hgb D-Dimer Creatinine Hemoglobin A1c Lactic Acid 8.6 H* 1.4 Phosphorus Magnesium Troponin I 10.127 H* B-Natriuretic Peptide Lipase SARS-CoV-2 Rap RNA(RT-PCR) 05/16/20 05/16/20 05/16/20 03:35 03:35 03:35 WBC 9.7 Hgb D-Dimer Creatinine 1.41 H Hemoglobin A1c 5.3 Lactic Acid Phosphorus 3.0 Magnesium 2.2 Troponin I B-Natriuretic Peptide Lipase SARS-CoV-2 Rap RNA(RT-PCR) 05/16/20 03:35 WBC Hgb D-Dimer Creatinine Hemoglobin A1c Lactic Acid Phosphorus Magnesium Troponin I 12.150 H* B-Natriuretic Peptide Lipase SARS-CoV-2 Rap RNA(RT-PCR) Radiology Reviewed by me: Yes (2D echo - EF 30-35%, severe hypokinesis of ant/apex/anteroseptal) EKG Reviewed by me: Yes (Tele - Sinus tach in low 100's) Hospitalist ROS - Medication Medications: Active Medications Generic Name Dose Route Start Last Admin Trade Name Freq PRN Reason Stop Dose Admin Aspirin 325 mg 05/16/20 09:00 05/17/20 09:33 Aspirin 325 Mg Tab PO 325 mg DAILY AUGUST Administration Atorvastatin Calcium 40 mg 05/15/20 21:00 05/16/20 20:27 Atorvastatin Calcium 40 Mg Tab PO 40 mg HS AUGUST Administration Enoxaparin Sodium 70 mg 05/16/20 09:00 05/17/20 09:35 Enoxaparin Sodium 80 Mg/0.8 Ml Syringe SC Not Given 0900 AUGUST Famotidine 20 mg 05/15/20 21:00 05/16/20 20:27 Famotidine/Pf 20 Mg/2ml Vial SLOW IVP 20 mg QPM AUGUST Administration Sodium Chloride 1,000 mls @ 70 mls/hr 05/15/20 20:00 05/17/20 14:40 Normal Saline 0.9% IV Not Given .[id number] AUGUST Ceftriaxone Sodium 2 gm/ 100 mls @ 200 mls/hr 05/16/20 18:00 05/16/20 17:46 Sodium Chloride IVPB 100 mls Q24HR AUGUST Administration Azithromycin 500 mg/ Sodium 250 mls @ 250 mls/hr 05/16/20 20:00 05/16/20 20:26 Chloride IVPB 250 mls Q24HR AUGUST Administration Dobutamine HCl/Dextrose 500 mg 250 mls @ 0 mls/hr 05/16/20 00:15 05/17/20 11:51 / Device IVPB 250 mls INF AUGUST Administration Protocol As Directed Fentanyl Citrate 2,000 mcg/ 100 mls @ 0 mls/hr 05/16/20 04:15 05/16/20 18:21 Sodium Chloride IV 06/15/20 04:15 100 mls INF AUGUST Administration Protocol Per Protocol Dexmedetomidine HCl 400 mcg/ 100 mls @ 0 mls/hr 05/17/20 09:30 05/17/20 09:54 Sodium Chloride IVPB 100 mls INF AUGUST Administration Protocol Per Protocol Lorazepam 2 mg 05/16/20 04:15 05/16/20 14:26 Lorazepam 2 Mg/Ml Vial SLOW IVP 06/15/20 04:15 2 mg Q1H PRN Administration Breakthrough agitation Sodium Chloride 10 ml 05/15/20 21:00 05/17/20 09:33 Flush - Normal Saline 10 Ml Syringe IVF 10 ml Q12HR AUGUST Administration - Exam General - other findings: sedate on mech vent, moving extremities spont Eye: PERRL, anicteric sclera ENT: normocephalic atraumatic, no oropharyngeal lesions ENT - other findings: ETT in place Neck: supple, symmetric, no JVD, no thyromegaly, no lymphadenopathy Heart: RRR, no murmur, no gallops, no rubs, normal peripheral pulses Heart - other findings: S1, S2 Respiratory - other findings: diminished bilat, few basilar crackles Gastrointestinal: soft, non-tender, non-distended, normal bowel sounds, no palpa ble masses Extremities: no cyanosis, no clubbing, no edema Skin: normal turgor, no lesions Neurological - other findings: sedate on mech vent, spont ext movement Musculoskeletal: generalized weakness Psychiatric: somnolent, lethargic Hosp A/P (1) NSTEMI (non-ST elevated myocardial infarction) Code(s): I21.4 - NON-ST ELEVATION (NSTEMI) MYOCARDIAL INFARCTION Status: Acute Plan: Continue current med mgmt, likely will need LHC when renal function stabilizes, continue ASA/Lipitor/Lovenox (2) Acute respiratory failure with hypoxia Code(s): J96.01 - ACUTE RESPIRATORY FAILURE WITH HYPOXIA Status: Acute Plan: Slow wean off mech vent, not weanable currently but likely in next 24h (3) Acute decompensated heart failure Code(s): I50.9 - HEART FAILURE, UNSPECIFIED Status: Acute Plan: Continue Dobutamine, slow wean off pressor support, EF 30-35%, s/p thoracentesis (4) Acute renal failure Status: Acute Qualifiers: Acute renal failure type: with acute tubular necrosis Qualified Code(s): N17.0 - Acute kidney failure with tubular necrosis Plan: Continue general support, Dobutamine gtt, serial creatinine (5) Sepsis Code(s): A41.9 - SEPSIS, UNSPECIFIED ORGANISM Status: Acute Plan: Suspected but no organism identified, continue empiric Zithromax/Rocephin (6) Pneumonia Code(s): J18.9 - PNEUMONIA, UNSPECIFIED ORGANISM Status: Acute Plan: ? PNA, more component of pulm edema, continue empiric abx and de-escalate as clinically indicated - Plan plan discussed w/ family, continue antibiotics, oncology social work, respiratory therapy, DVT proph w/SCDs Consults: Palliative Care Continue critical support Continue Mech ventilation SIMV, wean as indicated Continue ASA/Lipitor/Lovenox Continue pressor support with Dobutamine, weaning slowly Updated pt's son today AM lab: BMP, CBC, ABG PCXR in am
[2020-05-17] MEDS: Lorazepam 2 MG/ML VIAL SLOW IVP PRN (19:33)
[2020-05-17] MEDS: Azithromycin 500 MG in Sodium Chloride 0.9% 250 ML 250 ML IVPB SCH (21:09)
[2020-05-17] MEDS: Atorvastatin Calcium 40 MG TAB PO SCH (21:10)
[2020-05-17] MEDS: Famotidine/PF 20 mg/2ml Vial SLOW IVP SCH (21:10)
--- NOTE | 2020-05-17 21:37 | PDOC.CPN ---
- Subjective Date: 05/17/20 Time: 13:10 Interval history: Sedated. intubated. - Objective Allergies/Adverse Reactions: Allergies Allergy/AdvReac Type Severity Reaction Status Date / Time No Known Allergies Allergy Unverified 05/15/20 19:40 Visit Medications: Current Medications Acetaminophen (Acetaminophen 325 Mg Tab) 650 mg PO Q4H PRN PRN Reason: Headache/Fever/Mild Pain (1-3) Acetaminophen (Acetaminophen 650 Mg Suppository) 650 mg VT Q4H PRN PRN Reason: Headache/Fever/Mild Pain (1-3) Aspirin (Aspirin 325 Mg Tab) 325 mg PO DAILY [facility] Last Admin: 05/17/20 09:33 Dose: 325 mg Documented by: Atorvastatin Calcium (Atorvastatin Calcium 40 Mg Tab) 40 mg PO HS AUGUST Last Admin: 05/17/20 21:10 Dose: 40 mg Documented by: Enoxaparin Sodium (Enoxaparin Sodium 80 Mg/0.8 Ml Syringe) 70 mg SC 0900 AUGUST Last Admin: 05/17/20 09:35 Dose: Not Given Documented by: Famotidine (Famotidine/Pf 20 Mg/2ml Vial) 20 mg SLOW IVP QPM AUGUST Last Admin: 05/17/20 21:10 Dose: 20 mg Documented by: Sodium Chloride (Normal Saline 0.9%) 1,000 mls @ 70 mls/hr IV .[id number] AUGUST Last Admin: 05/17/20 21:12 Dose: 1,000 mls Documented by: Ceftriaxone Sodium 2 gm/ (Sodium Chloride) 100 mls @ 200 mls/hr IVPB Q24HR AUGUST Last Admin: 05/17/20 16:29 Dose: 100 mls Documented by: Azithromycin 500 mg/ Sodium (Chloride) 250 mls @ 250 mls/hr IVPB Q24HR AUGUST Last Admin: 05/17/20 21:09 Dose: 250 mls Documented by: Dobutamine HCl/Dextrose 500 mg (/ Device) 250 mls @ 0 mls/hr IVPB INF AUGUST; Protocol Last Admin: 05/17/20 11:51 Dose: 250 mls Documented by: Fentanyl Citrate 2,000 mcg/ (Sodium Chloride) 100 mls @ 0 mls/hr IV INF AUGUST; Protocol Stop: 06/15/20 04:15 Last Admin: 05/16/20 18:21 Dose: 100 mls Documented by: Fentanyl Citrate (Fentanyl Bolus) 250 mls @ 0 mls/hr IVPB PRN PRN PRN Reason: Breakthrough pain/agitation Stop: 06/15/20 04:15 Dexmedetomidine HCl 400 mcg/ (Sodium Chloride) 100 mls @ 0 mls/hr IVPB INF AUGUST; Protocol Last Admin: 05/17/20 09:54 Dose: 100 mls Documented by: Lorazepam (Lorazepam 2 Mg/Ml Vial) 2 mg SLOW IVP Q1H PRN PRN Reason: Breakthrough agitation Stop: 06/15/20 04:15 Last Admin: 05/17/20 19:33 Dose: 2 mg Documented by: Miscellaneous Medication (Ventilator Sedation Protocol 1 Each) 1 each FS ONE AUGUST Stop: 06/14/20 19:51 Morphine Sulfate (Morphine 2 Mg/Ml Vial) 2 mg SLOW IVP Q1H PRN PRN Reason: Breakthrough Pain/Agitation Stop: 06/15/20 04:15 Discontinue Previous Narcotic Pain Medications And Benzodiazepines 1 each FS .ONE AUGUST Stop: 06/15/20 04:15 Ondansetron HCl (Ondansetron Pf 4 Mg/2 Ml Vial) 4 mg IVP Q6H PRN PRN Reason: Nausea/Vomiting Ondansetron HCl (Ondansetron Odt 4 Mg Tab) 4 mg PO Q6H PRN PRN Reason: Nausea/Vomiting Propofol (Propofol 1,000 Mg/100 Ml Vial) 1,000 mg IV INF PRN; Protocol PRN Reason: TO ACHIEVE GOAL RASS Stop: 06/15/20 04:15 Propofol (Propofol Bolus 1,000 Mg/100 Ml Vial) 20 mg IV Q5MIN PRN PRN Reason: BREAKTHROUGH AGITATION Stop: 06/15/20 04:15 Sodium Chloride (Flush - Normal Saline 10 Ml Syringe) 10 ml IVF Q12HR [facility] Last Admin: 05/17/20 21:11 Dose: 10 ml Documented by: Sodium Chloride (Flush - Normal Saline 10 Ml Syringe) 10 ml IVF PRN PRN PRN Reason: Saline Flush Vital Signs & Weight: Vital Signs Pulse Resp BP 05/17/20 18:00 23 H 05/17/20 16:00 15 05/17/20 14:48 110 H 91/66 05/17/20 14:00 13 05/17/20 12:00 15 05/17/20 11:09 110 H 89/55 L 05/17/20 10:00 16 Admit Weight 165 lb Weight 165 lb 12.602 oz - Physical Exam General: other (intubated/sedated) Neck: supple neck Cardiac: regular rhythm, tachycardia Lungs: bibasilar rales, scattered rhonchi Abdomen: soft, non-tender Skin: clear - Labs Result Diagrams: 05/17/20 06:24 05/17/20 06:24 Troponin/CKMB CK-MB (CK-2) 21.5 ng/mL (0-6.6) H* 05/15/20 18:21 Troponin I 12.150 ng/mL (< 0.028) H* 05/16/20 03:35 - Assessment/Plan Assessment/Plan: 1. NSTEMI 2. Acute systolic CHF 3. JESENIA Continur supportive care. Unsure if patient with long-term CHF vs underlying ischemia causing NSTEMI and CHF. Dicussed prognosis with son. Guarded, but will continue monitoring urine output. Plan on starting lasix IV if stable.
[2020-05-18] MEDS: Lorazepam 2 MG/ML VIAL SLOW IVP PRN ×2 (00:43→07:27)
[2020-05-18] MEDS: Morphine 2 MG/ML VIAL SLOW IVP PRN ×2 (00:43→07:27)
[2020-05-18 05:29] LABS: #Monocytes 1.2 thou/uL (0.11-0.59); #Neutrophils 8.8 thou/uL (1.40-6.50); %Eosinophils 0.2 % (0.0-10.0); %Lymphocytes 9.4 % (21.0-51.0); %Monocytes 10.5 % (0.0-10.0); %Neutrophils 79.9 % (42.0-75.0); Mean Corpuscular Hemoglobin 28.3 pg (27.0-31.0); Mean Corpuscular Volume 85.8 fL (78.0-98.0); Mean Platelet Volume 8.6 fL (7.4-10.4); Platelet Count 192 thou/uL (130-400); RBC Distribution Width 13.2 % (11.5-14.5)
[2020-05-18 05:49] LABS: Anion Gap 12 mmol/L (10-20); BUN (Urea Nitrogen) 22 mg/dL (8.4-25.7); Calc. Creatinine Clearance 43 mL/min (70-130); Calcium 7.7 mg/dL (7.8-10.44); Carbon Dioxide 20 mmol/L (23-31); Chloride 110 mmol/L (98-107); Glucose 102 mg/dL (83-110); Potassium 4.4 mmol/L (3.5-5.1); Sodium 138 mmol/L (136-145)
--- NOTE | 2020-05-18 07:22 | OP ---
DATE OF PROCEDURE: 05/17/2020 PROCEDURE PERFORMED: Thoracentesis. Consent was obtained from the son yesterday. The patient was placed in the sitting position on the ventilator. Right posterior hemithorax was cleansed with chlorhexidine. Fluid was localized with a 22-gauge needle. #11 blade was used to make a skin incision. An 8-[place] [id number]-C-Dlixlqpa catheter was inserted in the pleural space. 700 mL of clear yellow pleural fluid was evacuated. Postprocedure, chest x-ray was ordered. It showed significant improvement in the right hemithorax as I had hoped. Endotracheal tube is in the proper position. Mental status prevents extubation at the time of the procedure. Probably will have to wait until morning and keep him off sedative drugs except for maybe a tiny dose of Precedex. Job ID: [id number]
[2020-05-18] MEDS: Aspirin 325 MG TAB PO SCH (08:28)
[2020-05-18] MEDS: Enoxaparin Sodium 80 MG/0.8 ML SYRINGE SC SCH (08:29)
--- NOTE | 2020-05-18 08:56 | RAD ---
PORTABLE CHEST: INDICATION: CHF. Pneumonia. Followup. COMPARISON: 05/17/2020. FINDINGS: ET tube and NG tube remain in place with central line unchanged. Increasing opacification I the right mid and lower lung when compared to yesterday. Right hemidiaphr agm is obscured. Mild vascular congestion. Left CP angle hemidiaphragm not imaged on this study. Left effusion noted yesterday does not appear significantly changed. IMPRESSION: Increasing opacification of the right mid and lower lung when compared to yesterday's exam. This cou ld represent increasing effusion on the right and/or increasing consolidation associated with right e ffusion. POS: AGW
--- NOTE | 2020-05-18 09:01 | PRG ---
DATE OF SERVICE: 05/18/20 SUBJECTIVE: Mr. Lester is a 79-year-old male, who was admitted for an acute respiratory failure. He was found to be in volume overload. He was subsequently intubated and placed on ventilator support. He also was found to have an elevated troponin I. We are following this patient for his acute kidney injury. This is secondary to ischemic acute tubular necrosis. Renal function remained stable. For unclear reasons, chest x-ray showed silicon depositions in the patient's chest. Exam shows a hard mass, which is most likely from silicon. The patient underwent a thoracentesis, about 700 cc of fluid was removed. No acute events noted last night. OBJECTIVE: VITAL SIGNS: Blood pressure 82/51, heart rate is 100, respiratory rate 19, O2 saturation 95%, and temperature of 100.1. GENERAL: The patient is minimally arousable, intubated on ventilator support. SKIN: Adequate turgor. HEENT: He has a pinkish conjunctivae. Anicteric sclerae. NECK: No neck mass. No carotid bruits. No JVD. CHEST: No deformities. Positive for hard subcutaneous mass on the right chest. HEART: Normal sinus rhythm. No murmur. No gallops. No rubs. ABDOMEN: Globular, soft, nontender. EXTREMITIES: No edema. MEDICATIONS: Medications of May 18, 2020, were reviewed. LABORATORY DATA: Laboratories of May 18, 2020: White count 11, hemoglobin 11. Sodium 138, potassium 4.4, chloride 110, carbon dioxide 20, BUN 22, creatinine 1.51, calcium 7.7. Chest x-ray is currently pending. ASSESSMENT AND PLAN: 1. Acute kidney injury, secondary to ischemic acute tubular necrosis. Stable renal function. No indication of any dialytic intervention. Continuing supportive care with this patient. 2. Pleural effusion/congestive heart failure, the patient is status post thoracentesis with 700 cc of fluid removed. 3. [id number] myocardial infarction, stable. Cardiology is following. 4. Acute respiratory failure, the patient is still not fully awake to be extubated. Pulmonary is following. Agree with current management. Job ID: [id number] MTDD
--- NOTE | 2020-05-18 09:47 | PRG ---
DATE OF SERVICE: 05/18/2020 SUBJECTIVE: Mr. Lester continues to be intubated and sedated. Blood pressure has been marginal. Dobutrex was recently discontinued. OBJECTIVE: VITAL SIGNS: Blood pressure 105/67, now 88/60; pulse 100; respirations 20. LUNGS: Minimal crackles noted bilaterally. HEART: Regular rate and rhythm. ABDOMEN: Soft, nontender, nondistended. EXTREMITIES: No edema. PERTINENT LABORATORY DATA: Hemoglobin 11, hematocrit 33.4, white blood cell count 11,000, and platelet count 192. IMPRESSION: 1. Acute systolic heart failure. 2. Chronic kidney disease. 3. Respiratory failure. May need to consider restarting Dobutrex. We will assess with the next several hours. The patient does have a living will in place. His power of transactional attorney is his son. At this point, we would like to continue current therapy and once the patient is able to be extubated, can discuss any further options. Avoid beta-hodan therapy in addition to CLEMENTINE inhibitor therapy or ARB due to hypotension and renal insufficiency. Job ID: [id number]
--- NOTE | 2020-05-18 10:47 | CT ---
CT BRAIN NONCONTRAST: DATE: 05/18/2020 HISTORY: 79-year-old male with altered mental status. Rule out intracranial hemorrhage. FINDINGS: There is no evidence of acute intra-axial or extra-axial hemorrhage. There is no midline shift or any other mass effect. There is no extra-axial fluid collection. There is no evidence of obstructive hydrocephalus. Calvarium is intact. Bilateral calcifications in the globus pallidus of basal ganglia. IMPRESSION: No acute intracranial findings.
--- NOTE | 2020-05-18 11:08 | PDOC.HOSPP ---
- Subjective Encounter Date: 05/18/20 Encounter Time: 07:45 Subjective: Patient seen and examined bedside today, patient is on ventilator, earlier today patient had tacky arrhythmia - Objective Vital Signs & Weight: Vital Signs (12 hours) Temp Pulse Resp 05/18/20 10:21 94 05/18/20 08:00 100.1 F H 05/18/20 07:45 155 H 05/18/20 06:00 17 05/18/20 04:00 98.5 F 20 05/18/20 02:00 21 H 05/18/20 00:00 98.8 F 26 H Weight Admit Weight 165 lb Weight 165 lb 12.602 oz Most Recent Monitor Data Heart Rate from ECG 95 NIBP 94/63 NIBP BP-Mean 73 Respiration from ECG 18 SpO2 98 I&O: 05/17/20 05/18/20 05/19/20 06:59 06:59 06:59 Intake Total 3123.8 2279.8 Output Total 895 900 40 Balance 2228.8 1379.8 -40 Result Diagrams: 05/18/20 03:55 05/18/20 03:55 Additional Labs: Accuchecks 05/17/20 11:38 POC Glucose 92 Radiology Reviewed by me: Yes EKG Reviewed by me: Yes Hospitalist ROS - Review of Systems ROS unobtainable: due to mental status - Medication Medications: Active Medications Generic Name Dose Route Start Last Admin Trade Name Freq PRN Reason Stop Dose Admin Aspirin 325 mg 05/16/20 09:00 05/18/20 08:28 Aspirin 325 Mg Tab PO 325 mg DAILY AUGUST Administration Atorvastatin Calcium 40 mg 05/15/20 21:00 05/17/20 21:10 Atorvastatin Calcium 40 Mg Tab PO 40 mg HS AUGUST Administration Enoxaparin Sodium 70 mg 05/16/20 09:00 05/18/20 08:29 Enoxaparin Sodium 80 Mg/0.8 Ml Syringe SC 70 mg 0900 AUGUST Administration Famotidine 20 mg 05/15/20 21:00 05/17/20 21:10 Famotidine/Pf 20 Mg/2ml Vial SLOW IVP 20 mg QPM AUGUST Administration Sodium Chloride 1,000 mls @ 70 mls/hr 05/15/20 20:00 05/17/20 21:12 Normal Saline 0.9% IV 1,000 mls .[id number] AUGUST Administration Ceftriaxone Sodium 2 gm/ 100 mls @ 200 mls/hr 05/16/20 18:00 05/17/20 16:29 Sodium Chloride IVPB 100 mls Q24HR AUGUST Administration Dobutamine HCl/Dextrose 500 mg 250 mls @ 0 mls/hr 05/16/20 00:15 05/17/20 11:51 / Device IVPB 250 mls INF AUGUST Administration Protocol As Directed Fentanyl Citrate 2,000 mcg/ 100 mls @ 0 mls/hr 05/16/20 04:15 05/16/20 18:21 Sodium Chloride IV 06/15/20 04:15 100 mls INF AUGUST Administration Protocol Per Protocol Dexmedetomidine HCl 400 mcg/ 100 mls @ 0 mls/hr 05/17/20 09:30 05/17/20 09:54 Sodium Chloride IVPB 100 mls INF AUGUST Administration Protocol Per Protocol Lorazepam 2 mg 05/16/20 04:15 05/18/20 07:27 Lorazepam 2 Mg/Ml Vial SLOW IVP 06/15/20 04:15 2 mg Q1H PRN Administration Breakthrough agitation Morphine Sulfate 2 mg 05/16/20 04:15 05/18/20 07:27 Morphine 2 Mg/Ml Vial SLOW IVP 06/15/20 04:15 2 mg Q1H PRN Administration Breakthrough Pain/Agitation Sodium Chloride 10 ml 05/15/20 21:00 05/18/20 08:32 Flush - Normal Saline 10 Ml Syringe IVF 10 ml Q12HR AUGUST Administration - Exam General Appearance: NAD, awake alert Eye: PERRL, anicteric sclera ENT: normocephalic atraumatic Neck: symmetric, no JVD, no thyromegaly Heart: RRR, no murmur, no gallops Respiratory: no wheezes, no rales, no ronchi Gastrointestinal: soft, non-tender, non-distended, normal bowel sounds Extremities: no cyanosis, no clubbing, no edema Skin: normal turgor, no lesions Hosp A/P (1) Acute respiratory failure with hypoxia Code(s): J96.01 - ACUTE RESPIRATORY FAILURE WITH HYPOXIA Status: Acute (2) Acute decompensated heart failure Code(s): I50.9 - HEART FAILURE, UNSPECIFIED Status: Acute (3) NSTEMI (non-ST elevated myocardial infarction) Code(s): I21.4 - NON-ST ELEVATION (NSTEMI) MYOCARDIAL INFARCTION Status: Acute (4) Pneumonia Code(s): J18.9 - PNEUMONIA, UNSPECIFIED ORGANISM Status: Suspected (5) Pleural effusion Code(s): J90 - PLEURAL EFFUSION, NOT ELSEWHERE CLASSIFIED Status: Acute - Plan old records reviewed/req Continue ventilatory support as per pulmonology Patient is on empiric Rocephin for suspected pneumonia, Continue dobutamine Cardiology following Discontinue IV fluid Patient is on Lovenox Weaning as per pulmonology S/p thoracentesis, pleural fluid is transudative,
[2020-05-18] MEDS: Midazolam HCl 2 mg/2 ml Vial IVP PRN ×3 (17:15→21:07)
[2020-05-18] MEDS: cefTRIAXone\\ROCEPHIN 2 GM in Sodium Chloride 0.9% 100 ML IVPB SCH (17:20)
[2020-05-18] MEDS: Atorvastatin Calcium 40 MG TAB PO SCH (20:07)
[2020-05-18] MEDS: Famotidine/PF 20 mg/2ml Vial SLOW IVP SCH (20:07)
--- NOTE | 2020-05-18 20:35 | PRG ---
DATE OF SERVICE: 05/18/2020 SUBJECTIVE: Navjot Lester has really awakened as we hope he would. He would not follow commands today, was following commands the day after he is admitted and intubated. There has been no prolonged hypoxemic event. We did a CT of his head to make sure he did have a Lovenox related brain bleed. There is nothing remarkable on his noncontrast CT today. OBJECTIVE: LUNGS: Remarkable, coarse, equal breath sounds. HEART: Regular rhythm. ABDOMEN: Soft. EXTREMITIES: Without asymmetry. LABORATORY DATA: White count 11.0, hemoglobin 11.0, platelets 192. Sodium 130, potassium 4.4, chloride 110, bicarb 20, BUN 22, creatinine 1.51. The pH is 7.45 yesterday. There is no blood gas today. Chest radiograph shows more effusion I believe on the right after his tap yesterday. IMPRESSION: 1. Systolic heart failure. 2. Segmental wall motion abnormalities. An echocardiogram suggested to rule out coronary artery disease. 3. Chronic kidney disease, stabilizing. PLAN: I do not feel that this is hopeless and much bleed. We should continue aggressive care, hoping that he will progress to a point where we can extubate him. Could have a brief period of tachycardia and tachypnea this morning, which makes me wonder if he was ischemic this morning. He responded to some more sedation. Critical care time 30 min. Job ID: [id number] MTDD
[2020-05-19 04:18] LABS: #Lymphocytes 0.9 thou/uL (1.20-3.40); #Monocytes 0.9 thou/uL (0.11-0.59); #Neutrophils 6.6 thou/uL (1.40-6.50); %Basophils 0.2 % (0.0-1.0); %Eosinophils 0.4 % (0.0-10.0); %Lymphocytes 10.6 % (21.0-51.0); %Monocytes 10.6 % (0.0-10.0); %Neutrophils 78.2 % (42.0-75.0); Hemoglobin 10.9 g/dL (14.0-18.0); Mean Corpuscular HGB CONC 32.9 g/dL (32.0-36.0); Mean Corpuscular Hemoglobin 28.1 pg (27.0-31.0); Mean Corpuscular Volume 85.6 fL (78.0-98.0); Mean Platelet Volume 8.8 fL (7.4-10.4); Platelet Count 201 thou/uL (130-400); RBC Distribution Width 13.2 % (11.5-14.5); Red Blood Cell (RBC) Count 3.86 mill/uL (4.70-6.10); White Blood Cell (WBC) Count 8.5 thou/uL (4.8-10.8)
[2020-05-19 04:42] LABS: Anion Gap 13 mmol/L (10-20); BUN (Urea Nitrogen) 29 mg/dL (8.4-25.7); Calc. Creatinine Clearance 39 mL/min (70-130); Calcium 7.9 mg/dL (7.8-10.44); Carbon Dioxide 18 mmol/L (23-31); Chloride 112 mmol/L (98-107); Glucose 130 mg/dL (83-110); Potassium 3.9 mmol/L (3.5-5.1); Sodium 139 mmol/L (136-145)
[2020-05-19] MEDS: Midazolam HCl 2 mg/2 ml Vial IVP PRN ×7 (04:43→21:38)
--- NOTE | 2020-05-19 07:59 | RAD ---
Chest AP view INDICATION: History of myocardial infarction, CHF and pneumonia COMPARISON: Prior exam dated May 18, 2020 FINDINGS: Lungs: There is worsening pleural-parenchymal opacities, greater on the left. Cardiac silhouette: Cardiomegaly persists Pulmonary vasculature: Pulmonary vascular congestion has worsened Pleural spaces: Bilateral pleural effusions slightly increased in size, left greater than right. Upper abdomen: Gastric catheter is unchanged. Osseous structures: No acute osseous abnormality. Additional findings: ET tube and left subclavian central venous catheter is stable. IMPRESSION: Findings suspicious for worsening CHF
[2020-05-19] MEDS ORDERED: Furosemide 40 MG/4 ML VIAL SLOW IVP SCH (08:30)
--- NOTE | 2020-05-19 08:56 | PRG ---
DATE OF SERVICE: 05/19/2020 SUBJECTIVE: Mr. Lester is a 79-year-old male, who was admitted for an acute respiratory failure/CHF. He also had an NSTEMI. In addition, we are following him up for his acute kidney injury secondary to ischemic acute tubular necrosis. Review of the x-ray shows worsening CHF. Please note, his IV fluid has been discontinued yesterday. Our plan is to give him Lasix 40 mg IV x1 dose this a.m. We will repeat as needed. No acute events noted last night. OBJECTIVE: VITAL SIGNS: Blood pressure is 108/80, heart rate 103, respiratory rate 16, O2 saturation 95%. GENERAL: The patient is sleeping, but arousable, intubated on ventilator support. SKIN: Adequate turgor. HEENT: He has pinkish conjunctivae. Anicteric sclerae. NECK: No neck mass. No carotid bruits. No JVD. CHEST: No deformities. LUNGS: Decreased breath sounds. HEART: Normal sinus rhythm. No murmurs, gallops, or rubs. ABDOMEN: Globular, soft, nontender. No masses. EXTREMITIES: Trace edema. No deformities. MEDICATIONS: Medications of May 19, 2020, were reviewed. LABORATORY DATA: Laboratories of May 19, 2020; white count 8.5, hemoglobin 10.9. Sodium 139, potassium 3.9, chloride 112, carbon dioxide 18, BUN 29, creatinine 1.68, glucose 120, calcium 7.9. ASSESSMENT AND PLAN: 1. Acute kidney injury - secondary to ischemic ATN. The patient is noted to be oliguric. Chest x-ray shows increased lung markings. Our plan is to give him a one time dose of Lasix 40 mg IV and to be repeated as needed. There is no indication for any emergent hemodialysis with this patient. 2. Acute respiratory failure - currently intubated on ventilator support. Pulmonary following. 3. Wmq-[id number]-[id number] elevation myocardial infarction. Continuing supportive care. Cardiology is also following. 4. We will recheck CBC, base met in a.m. Job ID: [id number]
--- NOTE | 2020-05-19 09:35 | PDOC.HOSPP ---
- Subjective Encounter Date: 05/19/20 Encounter Time: 07:10 Subjective: Patient seen and examined. Patient is on ventilator, overall doing okay, - Objective Vital Signs & Weight: Vital Signs (12 hours) Temp Pulse Resp Pulse Ox 05/19/20 08:00 16 05/19/20 07:55 95 05/19/20 07:41 107 H 05/19/20 06:00 22 H 05/19/20 04:00 98.9 F 17 05/19/20 02:00 24 H 05/19/20 00:00 98.7 F 24 H 05/18/20 22:00 20 Weight Admit Weight 165 lb Weight 172 lb 13.478 oz Most Recent Monitor Data Heart Rate from ECG 103 NIBP 108/80 NIBP BP-Mean 89 Respiration from ECG 21 SpO2 100 I&O: 05/18/20 05/19/20 05/20/20 06:59 06:59 06:59 Intake Total 2279.8 1449.3 30 Output Total 900 640 32 Balance 1379.8 809.3 -2 Result Diagrams: 05/19/20 03:20 05/19/20 03:20 Additional Labs: Accuchecks 05/17/20 11:38 POC Glucose 92 Radiology Reviewed by me: Yes EKG Reviewed by me: Yes Hospitalist ROS - Review of Systems ROS unobtainable: due to endotracheal tube - Medication Medications: Active Medications Generic Name Dose Route Start Last Admin Trade Name Freq PRN Reason Stop Dose Admin Aspirin 325 mg 05/16/20 09:00 05/18/20 08:28 Aspirin 325 Mg Tab PO 325 mg DAILY AUGUST Administration Atorvastatin Calcium 40 mg 05/15/20 21:00 05/18/20 20:07 Atorvastatin Calcium 40 Mg Tab PO 40 mg HS AUGUST Administration Enoxaparin Sodium 70 mg 05/16/20 09:00 05/18/20 08:29 Enoxaparin Sodium 80 Mg/0.8 Ml Syringe SC 70 mg 0900 AUGUST Administration Famotidine 20 mg 05/15/20 21:00 05/18/20 20:07 Famotidine/Pf 20 Mg/2ml Vial SLOW IVP 20 mg QPM AUGUST Administration Ceftriaxone Sodium 2 gm/ 100 mls @ 200 mls/hr 05/16/20 18:00 05/18/20 17:20 Sodium Chloride IVPB 100 mls Q24HR AUGUST Administration Dobutamine HCl/Dextrose 500 mg 250 mls @ 0 mls/hr 05/16/20 00:15 05/17/20 11:51 / Device IVPB 250 mls INF AUGUST Administration Protocol As Directed Fentanyl Citrate 2,000 mcg/ 100 mls @ 0 mls/hr 05/16/20 04:15 05/16/20 18:21 Sodium Chloride IV 06/15/20 04:15 100 mls INF AUGUST Administration Protocol Per Protocol Dexmedetomidine HCl 400 mcg/ 100 mls @ 0 mls/hr 05/17/20 09:30 05/19/20 04:36 Sodium Chloride IVPB 100 mls INF AUGUST Administration Protocol Per Protocol Midazolam HCl 2 mg 05/18/20 15:35 05/19/20 06:41 Midazolam Hcl 2 Mg/2 Ml Vial IVP 2 mg Q1H PRN Administration Agitation Morphine Sulfate 2 mg 05/16/20 04:15 05/18/20 07:27 Morphine 2 Mg/Ml Vial SLOW IVP 06/15/20 04:15 2 mg Q1H PRN Administration Breakthrough Pain/Agitation Sodium Chloride 10 ml 05/15/20 21:00 05/18/20 20:07 Flush - Normal Saline 10 Ml Syringe IVF 10 ml Q12HR AUGUST Administration - Exam General Appearance: NAD, awake alert General - other findings: Intubated Eye: PERRL, anicteric sclera ENT: normocephalic atraumatic Neck: supple, symmetric, no JVD Heart: RRR, no murmur, no gallops, no rubs Respiratory: no wheezes, no ronchi Respiratory - other findings: Air entry reduced at base Gastrointestinal: soft, non-distended, normal bowel sounds Extremities: no edema Skin: normal turgor Hosp A/P (1) Acute respiratory failure with hypoxia Code(s): J96.01 - ACUTE RESPIRATORY FAILURE WITH HYPOXIA Status: Acute Plan: Due to congestive heart failure, currently on ventilator, pulmonology managing ventilator (2) Acute decompensated heart failure Code(s): I50.9 - HEART FAILURE, UNSPECIFIED Status: Acute Plan: Acute on chronic systolic heart failure, continue Lasix and Dobutrex, cardiology following, monitor daily electrolytes and renal function as well as input output chart, currently patient is not on beta-hodan or any CLEMENTINE inhibitor or ARB because of low blood pressure (3) NSTEMI (non-ST elevated myocardial infarction) Code(s): I21.4 - NON-ST ELEVATION (NSTEMI) MYOCARDIAL INFARCTION Status: Acute Plan: This is type II myocardial infarction due to demand ischemia from congestive h eart failure, (4) Pneumonia Code(s): J18.9 - PNEUMONIA, UNSPECIFIED ORGANISM Status: Ruled-out Plan: Most likely patient does not have any congestive heart failure, this was suspected finding on admission, will discontinue antibiotic therapy today, Pneumonia diagnosis excluded (5) Pleural effusion Code(s): J90 - PLEURAL EFFUSION, NOT ELSEWHERE CLASSIFIED Status: Acute Plan: This is because of worsening of congestive heart failure, patient required thoracentesis as well, patient has bilateral pleural effusion based on current chest x-ray left more than right (6) Acute renal failure superimposed on stage 3 chronic kidney disease Code(s): N17.9 - ACUTE KIDNEY FAILURE, UNSPECIFIED; N18.30 - CHRONIC KIDNEY DISEASE, STAGE 3 UNSPECIFIED Status: Acute Plan: Due to cardiorenal syndrome, continue Lasix and dobutamine, monitor renal function, nephrology following - Plan old records reviewed/req, stone catheter, respiratory therapy Continue ventilatory support as per pulmonology Discontinue Rocephin Continue dobutamine, Continue Lasix Continue Lovenox Weaning as per pulmonology
[2020-05-19] MEDS: Aspirin 325 MG TAB PO SCH (09:57)
[2020-05-19] MEDS: Enoxaparin Sodium 80 MG/0.8 ML SYRINGE SC SCH (09:57)
[2020-05-19] MEDS ORDERED: Furosemide 40 MG/4 ML VIAL IVP SCH (10:04)
--- NOTE | 2020-05-19 11:44 | PRG ---
DATE OF SERVICE: 05/19/2020 SUBJECTIVE: Navjot remains mechanically ventilated. He is following commands today, but will not open his eyes. Reviewing his intake and output, he is up basically for 4.5 L since he is admitted. His weight is up 7 pounds, which would be close to accurate based on intake and output. OBJECTIVE: LUNGS: Remarkable for coarse anterior breath sounds. HEART: Regular rhythm. ABDOMEN: Soft. EXTREMITIES: Without asymmetry or edema. LABORATORY DATA: White count 8.5, hemoglobin 10.9, platelets 201. Sodium 139, potassium 3.9, chloride 112, bicarb 18, BUN 29, creatinine 1.6. IMPRESSION: 1. Congestive heart failure. 2. Status post an episode of tachycardia and tachypnea yesterday morning. I would wonder if he was not ischemic. 3. Progressive pulmonary edema with positive fluid balance. He will need to be more aggressively diuresed this weekend. 4. Acute on chronic kidney disease. I met with son and answered all his questions. He is not weanable today. It may be several days before we can consider extubation if we can diurese him pushing him into renal failure. Critical care time 30 min. Job ID: [id number] MTDD
--- NOTE | 2020-05-19 14:35 | PRG ---
DATE OF SERVICE: 05/19/2020 SUBJECTIVE: Mr. Lester is currently still intubated, sedated. He does awaken, off sedation. He is requiring a low-dose dobutamine for blood pressure support, but once he is more awake, his blood pressure is stable. OBJECTIVE: VITAL SIGNS: Blood pressure 92/62, pulse is 89, and respirations 20. LUNGS: Have minimal crackles bilaterally. HEART: Regular rate and rhythm. ABDOMEN: Soft, nontender, nondistended. EXTREMITIES: No edema. PERTINENT LABORATORY DATA: Hemoglobin 10.9, hematocrit 33. Creatinine 1.68. IMPRESSION: 1. Acute systolic heart failure. 2. Respiratory failure. RECOMMENDATIONS: 1. The patient to be extubated within the next 12 to 24 hours. 2. Continue current support. 3. Anticipate stopping Dobutrex once he is awake and extubated. 4. We will need decision on proceeding with a more aggressive versus conservative approach for Mr. Lester. Job ID: [id number]
[2020-05-19] MEDS: Atorvastatin Calcium 40 MG TAB PO SCH (20:16)
[2020-05-19] MEDS: Famotidine/PF 20 mg/2ml Vial SLOW IVP SCH (20:16)
[2020-05-20] MEDS: Midazolam HCl 2 mg/2 ml Vial IVP PRN ×6 (01:51→23:51)
[2020-05-20] MEDS: Ondansetron PF 4 MG/2 ML Vial IVP PRN ×2 (02:14→20:26)
[2020-05-20 07:33] LABS: #Lymphocytes 0.7 thou/uL (1.20-3.40); #Monocytes 1.3 thou/uL (0.11-0.59); #Neutrophils 6.7 thou/uL (1.40-6.50); %Basophils 0.3 % (0.0-1.0); %Eosinophils 0.1 % (0.0-10.0); %Lymphocytes 7.5 % (21.0-51.0); %Monocytes 14.6 % (0.0-10.0); %Neutrophils 77.6 % (42.0-75.0); Mean Corpuscular HGB CONC 33.2 g/dL (32.0-36.0); Mean Corpuscular Hemoglobin 28.2 pg (27.0-31.0); Mean Platelet Volume 8.2 fL (7.4-10.4); Platelet Count 225 thou/uL (130-400); Red Blood Cell (RBC) Count 3.88 mill/uL (4.70-6.10); White Blood Cell (WBC) Count 8.7 thou/uL (4.8-10.8)
[2020-05-20 07:52] LABS: Anion Gap 15 mmol/L (10-20); BUN (Urea Nitrogen) 38 mg/dL (8.4-25.7); Calc. Creatinine Clearance 36 mL/min (70-130); Calcium 8.1 mg/dL (7.8-10.44); Carbon Dioxide 20 mmol/L (23-31); Chloride 113 mmol/L (98-107); Glucose 148 mg/dL (83-110); Potassium 4.2 mmol/L (3.5-5.1); Sodium 144 mmol/L (136-145)
[2020-05-20 09:07] LABS: Base Excess (BEa) -2.6 mEq/L (-2.0 to +3.0); CO2 Tension 28.2 mmHg (35.0-45.0); Calcium, Ionized (arterial) 1.14 mmol/L (1.12-1.30); Carboxyhemoglobin (COHb) 0.3 gm% (0.0-3.0); Hemoglobin (Hb) 11.8 g/dL (14.0-18.0); O2 Tension (PaO2), arterial 121.4 mmHg (> 70.0); Potassium - ABG Lab 4.15 mmol/L (3.70-5.30); pH, Arterial 7.47 (7.35-7.45)
[2020-05-20 09:08] LABS: Puncture Site RRA
[2020-05-20] MEDS ORDERED: Furosemide 40 MG/4 ML VIAL SLOW IVP SCH (09:30)
--- NOTE | 2020-05-20 09:33 | PRG ---
DATE OF SERVICE: 05/20/2020 35 minutes critical care time. SUBJECTIVE: The patient remains intubated on mechanical ventilation. He is on a dobutamine drip. He is also on Precedex for sedation. I find him very difficult to arouse on the Precedex. OBJECTIVE: VITAL SIGNS: On exam, temperature 98.3, pulse 94, blood pressure 99/69, O2 saturation 100%. 24-hour intake 1762, output 2162 for negative 400 fluid balance. HEENT: Unremarkable. NECK: No adenopathy or JVD. LUNGS: Crackles bilaterally. CARDIOVASCULAR: S1, S2. Regular. ABDOMEN: Somewhat distended. EXTREMITIES: Edematous throughout. LABORATORY DATA: White blood cell count 8.7, hematocrit 33, platelet count 225. PH of 7.47, pCO2 of 28, PO2 of 121 on SIMV rate 6, tidal volume 450, PEEP 5, pressure support 10, FiO2 40%. Sodium 144, potassium 4.2, chloride 113, CO2 of 20, BUN 38, creatinine 1.8, glucose 148. Chest x-ray from yesterday demonstrated severe pulmonary edema and bilateral effusions. ASSESSMENT: 1. Acute systolic heart failure. 2. Acute respiratory failure requiring mechanical ventilation. 3. Renal insufficiency. PLAN: 1. In my opinion, he is not weanable secondary to his level of sedation and continued severe edema on the x-ray. Plan, continue dobutamine drip. 2. Continue to push diuresis. 3. I have dropped the tidal volume and mechanical ventilation secondary to development of alkalosis. Job ID: [id number]
[2020-05-20] MEDS ORDERED: Spironolactone 25 MG TAB PO SCH ×2 (10:30→11:00)
[2020-05-20] MEDS: Enoxaparin Sodium 80 MG/0.8 ML SYRINGE SC SCH (11:26)
[2020-05-20] MEDS: Aspirin 325 MG TAB PO SCH (11:30)
--- NOTE | 2020-05-20 11:31 | PRG ---
DATE OF SERVICE: 05/20/2020 SUBJECTIVE: Mr. Lester is a 79-year-old white male, who was admitted for acute respiratory failure. We are seeing him for his acute kidney injury secondary to ischemic acute tubular necrosis. Renal function has been stable. He was started on diuretics due to his CHF, and he seems to be tolerating these at the present time. No acute events noted last night. OBJECTIVE: VITAL SIGNS: Blood pressure is 99/69, respiratory rate is 29, heart rate is 94, and O2 saturation 100%. GENERAL: The patient is sedated and intubated, on ventilator support. SKIN: Adequate turgor. HEENT: Pinkish conjunctivae. Anicteric sclerae. NECK: No neck mass. No carotid bruits. No JVD. CHEST: No deformities. LUNGS: Clear. Decreased breath sounds. HEART: Normal sinus rhythm. No murmur. No gallops. No rubs. ABDOMEN: Globular, soft, nontender. No masses. EXTREMITIES: No edema. No deformities. MEDICATIONS: Of May 20, 2020, were reviewed. LABORATORY DATA: Of May 20, 2020; white count 8.7, hemoglobin is 11. Sodium 144, potassium 4.2, chloride 113, carbon dioxide 20, BUN 38, creatinine 1.85, glucose 148, and calcium 8.1. ASSESSMENT AND PLAN: 1. Acute kidney injury-consider ischemic acute tubular necrosis. Creatinine is slightly high at 1.85 from 1.68. He is currently on a diuretic regimen. Continue current diuresis. No indication for any dialytic intervention. 2. Congestive heart failure. Currently, on IV diuretics. Cardiology is following. He has a [id number] myocardial infarction. 3. Acute respiratory failure, currently intubated. He still has decreased mentation. The patient is being followed by Pulmonary Medicine. Job ID: [id number]
[2020-05-20] MEDS: hydrALAZINE 10 MG TAB PO SCH ×2 (14:16→21:33)
--- NOTE | 2020-05-20 14:57 | EKG ---
Test Reason : Blood Pressure : / mmHG Vent. Rate : 132 BPM Atrial Rate : 132 BPM P-R Int : 158 ms QRS Dur : 084 ms QT Int : 260 ms P-R-T Axes : 035 038 233 degrees QTc Int : 385 ms Baseline Artifact Present , interpretation based on intrinsic rhythm Sinus tachycardia with Premature atrial complexes with Abberant conduction Possible Left atrial enlargement Anteroseptal infarct , age undetermined Abnormal ECG Confirmed by HUMZA FANG, ROXANNE ([id number]), editor at large TIANNA WHITING ([id number]) on 05/20/2020 2:57:31 PM Referred By: Confirmed By:ROXANNE CHING MD
--- NOTE | 2020-05-20 14:58 | EKG ---
Test Reason : Blood Pressure : / mmHG Vent. Rate : 095 BPM Atrial Rate : 095 BPM P-R Int : 170 ms QRS Dur : 082 ms QT Int : 418 ms P-R-T Axes : 016 031 247 degrees QTc Int : 525 ms Sinus rhythm with frequent Premature ventricular complexes in a pattern of bigeminy Possible Left atrial enlargement Possible Inferior infarct , age undetermined Anteroseptal infarct , age undetermined Prolonged QT Abnormal ECG #3 Confirmed by HUMZA FANG, ROXANNE ([id number]), proposal editor TIANNA WHITING ([id number]) on 05/20/2020 2:58:07 PM Referred By: Confirmed By:ROXANNE CHING MD
--- NOTE | 2020-05-20 14:58 | EKG ---
Test Reason : Blood Pressure : / mmHG Vent. Rate : 090 BPM Atrial Rate : 090 BPM P-R Int : 178 ms QRS Dur : 088 ms QT Int : 426 ms P-R-T Axes : 024 033 268 degrees QTc Int : 521 ms Normal sinus rhythm Possible Left atrial enlargement Possible Inferior infarct , age undetermined Anterior infarct , age undetermined Prolonged QT Abnormal ECG #2 Confirmed by HUMZA FANG, ROXANNE (12), state editor TIANNA WHITING ([id number]) on 05/20/2020 2:57:49 PM Referred By: Confirmed By:ROXANNE CHING MD
[2020-05-20] MEDS ORDERED: hydrALAZINE 25 MG TAB PO SCH (15:00)
--- NOTE | 2020-05-20 15:08 | PDOC.HOSPP ---
- Subjective Encounter Date: 05/20/20 Encounter Time: 11:45 Subjective: Patient's son is at bedside. Patient is able to open his eyes this morning. He recognized his son. On vent. Dobutamine drip running. - Objective Vital Signs & Weight: Vital Signs (12 hours) Temp Pulse Resp 05/20/20 14:16 93 05/20/20 08:04 93 05/20/20 06:00 26 H 05/20/20 04:00 98.3 F 29 H 05/20/20 03:11 96 Weight Admit Weight 165 lb Weight 172 lb 9.951 oz Most Recent Monitor Data Heart Rate from ECG 94 NIBP 119/83 NIBP BP-Mean 95 Respiration from ECG 26 SpO2 98 I&O: 05/19/20 05/20/20 05/21/20 06:59 06:59 06:59 Intake Total 1449.3 1762 Output Total 640 2162 175 Balance 809.3 -400 -175 Result Diagrams: 05/20/20 07:23 05/20/20 07:16 Hospitalist ROS - Medication Medications: Active Medications Generic Name Dose Route Start Last Admin Trade Name Freq PRN Reason Stop Dose Admin Aspirin 325 mg 05/16/20 09:00 05/20/20 11:30 Aspirin 325 Mg Tab PO 325 mg DAILY AUGUST Administration Atorvastatin Calcium 40 mg 05/15/20 21:00 05/19/20 20:16 Atorvastatin Calcium 40 Mg Tab PO 40 mg HS AUGUST Administration Enoxaparin Sodium 70 mg 05/16/20 09:00 05/20/20 11:26 Enoxaparin Sodium 80 Mg/0.8 Ml Syringe SC 70 mg 0900 AUGUST Administration Famotidine 20 mg 05/15/20 21:00 05/19/20 20:16 Famotidine/Pf 20 Mg/2ml Vial SLOW IVP 20 mg QPM AUGUST Administration Hydralazine HCl 10 mg 05/20/20 15:00 05/20/20 14:16 Hydralazine 10 Mg Tab PO Not Given TID AUGUST Dobutamine HCl/Dextrose 500 mg 250 mls @ 0 mls/hr 05/16/20 00:15 05/17/20 1 1:51 / Device IVPB 250 mls INF AUGUST Administration Protocol As Directed Fentanyl Citrate 2,000 mcg/ 100 mls @ 0 mls/hr 05/16/20 04:15 05/16/20 18:21 Sodium Chloride IV 06/15/20 04:15 100 mls INF AUGUST Administration Protocol Per Protocol Dexmedetomidine HCl 400 mcg/ 100 mls @ 0 mls/hr 05/17/20 09:30 05/20/20 08:43 Sodium Chloride IVPB 100 mls INF AUGUST Administration Protocol Per Protocol Midazolam HCl 2 mg 05/18/20 15:35 05/20/20 11:26 Midazolam Hcl 2 Mg/2 Ml Vial IVP 2 mg Q1H PRN Administration Agitation Morphine Sulfate 2 mg 05/16/20 04:15 05/18/20 07:27 Morphine 2 Mg/Ml Vial SLOW IVP 06/15/20 04:15 2 mg Q1H PRN Administration Breakthrough Pain/Agitation Ondansetron HCl 4 mg 05/15/20 19:50 05/20/20 02:14 Ondansetron Pf 4 Mg/2 Ml Vial IVP 4 mg Q6H PRN Administration Nausea/Vomiting - Exam General Appearance: ill appearing General - other findings: On vent Eye: PERRL ENT: normocephalic atraumatic Neck: supple Neurological: no new deficit Psychiatric: not oriented Hosp A/P - Plan (1) Acute respiratory failure with hypoxia Code(s): J96.01 - ACUTE RESPIRATORY FAILURE WITH HYPOXIA Status: Acute Plan: Due to congestive heart failure, currently on ventilator, pulmonology managing ventilator (2) Acute on chronic decompensated heart failure Code(s): I50.9 - HEART FAILURE, UNSPECIFIED Status: Acute Plan: Acute on chronic systolic heart failure, continue Lasix and Dobutrex, cardiology following, monitor daily electrolytes and renal function as well as input output chart, currently patient is not on beta-hodan or any CLEMENTINE inhibitor or ARB because of low blood pressure (3) NSTEMI (non-ST elevated myocardial infarction) Code(s): I21.4 - NON-ST ELEVATION (NSTEMI) MYOCARDIAL INFARCTION Status: Acute Plan: This is type II myocardial infarction due to demand ischemia from congestive heart failure, (4) Pneumonia Code(s): J18.9 - PNEUMONIA, UNSPECIFIED ORGANISM Status: Ruled-out Plan: Most likely patient does not have any congestive heart failure, this was suspected finding on admission, will discontinue antibiotic therapy today, Pneumonia diagnosis excluded (5) Pleural effusion Code(s): J90 - PLEURAL EFFUSION, NOT ELSEWHERE CLASSIFIED Status: Acute Plan: This is because of worsening of congestive heart failure, patient required thoracentesis as well, patient has bilateral pleural effusion based on current chest x-ray left more than right (6) Acute renal failure superimposed on stage 3 chronic kidney disease Acute tubular necrosis Due to cardiorenal syndrome, continue Lasix and dobutamine, monitor renal function, nephrology following Continue ventilatory support - per pulmonology Continue dobutamine, Continue Lovenox 70 mg subcu Weaning as per pulmonology Full code
[2020-05-20] MEDS: Atorvastatin Calcium 40 MG TAB PO SCH (20:25)
[2020-05-20] MEDS: Famotidine/PF 20 mg/2ml Vial SLOW IVP SCH (20:25)
[2020-05-20] MEDS: Acetaminophen 325 MG TAB PO PRN (20:25)
[2020-05-21] MEDS: Morphine 2 MG/ML VIAL SLOW IVP PRN ×2 (02:15→14:03)
[2020-05-21] MEDS: Midazolam HCl 2 mg/2 ml Vial IVP PRN ×8 (04:56→22:09)
[2020-05-21] MEDS ORDERED: Spironolactone 25 MG TAB PO SCH (09:00)
[2020-05-21] MEDS: hydrALAZINE 10 MG TAB PO SCH ×3 (09:31→20:49)
[2020-05-21] MEDS: Aspirin 325 MG TAB PO SCH (09:31)
[2020-05-21] MEDS: Enoxaparin Sodium 80 MG/0.8 ML SYRINGE SC SCH (09:32)
[2020-05-21 09:37] LABS: Anion Gap 18 mmol/L (10-20); BUN (Urea Nitrogen) 45 mg/dL (8.4-25.7); Calc. Creatinine Clearance 31 mL/min (70-130); Carbon Dioxide 16 mmol/L (23-31); Chloride 115 mmol/L (98-107); Glucose 135 mg/dL (83-110); Potassium 5.4 mmol/L (3.5-5.1); Sodium 144 mmol/L (136-145)
--- NOTE | 2020-05-21 10:53 | RAD ---
AP CHEST: HISTORY: Pneumonia followup. CCU followup. COMPARISON: 05/19/2020. FINDINGS: Opacification of the right lung base again noted suggesting effusion and bibasilar atelectasis and co nsolidation. Left effusion obscures the left hemidiaphragm and left lung base. Mild vascular conges tion. ET tube and N tube remain in place. The upper lung gould show improved aeration today when compared to the prior study. POS: AGW
--- NOTE | 2020-05-21 11:24 | PRG ---
DATE OF SERVICE: 05/21/2020 SUBJECTIVE: Mr. Lester is 79-year-old male, who was admitted for shortness of breath/acute respiratory failure. He was subsequently intubated and placed on ventilator support. We are following up this patient for his acute kidney injury secondary to ischemic acute tubular necrosis. He was also found to be in CHF, currently has been receiving p.r.n. diuretics. OBJECTIVE: VITAL SIGNS: Blood pressure is 119/81, heart rate 98, respiratory rate 28, O2 saturation 97%. GENERAL: The patient is sleeping, but arousable, intubated on ventilator support. SKIN: Adequate turgor. HEENT: Pinkish conjunctivae. Anicteric sclerae. NECK: No neck mass. No carotid bruits. No JVD. CHEST: No deformities. LUNGS: Decreased breath sounds. HEART: Normal sinus rhythm. No murmur. No gallops. No rubs. ABDOMEN: Globular, soft, nontender. No masses. EXTREMITIES: No edema. MEDICATIONS: Medications of May 21, 2020, was reviewed. LABORATORY DATA: Laboratories of May 20, 2020; white count 8.7, hemoglobin 11. May 21, 2020; sodium 144, potassium 5.4, chloride 115, carbon dioxide 16, BUN 45, creatinine 2.11, GFR 31 mL/minute, calcium 8.0. Chest x-ray of May 21, 2020, showed improving upper lung gould, still with the left effusion. ASSESSMENT AND PLAN: 1. Congestive heart failure. Currently, on p.r.n. IV Lasix. Due to the worsening renal dysfunction, we will hold off diuretics today. 2. Acute kidney injury secondary to underlying acute tubular necrosis. Creatinine has been worsening. Most recent creatinine 2.2. There is no indication for any emergent dialytic intervention with this patient. Continue supportive care, judicious use of diuretics. 3. Acute respiratory failure, currently intubated on ventilator support. Continue supportive care. Overall, prognosis remains guarded. Job ID: [id number]
--- NOTE | 2020-05-21 11:32 | PRG ---
DATE OF SERVICE: 05/21/2020 35 minutes critical care time. SUBJECTIVE: The patient remains intubated on mechanical ventilation. Sedation is off this morning. He is not following commands and he is flailing in the bed. OBJECTIVE: VITAL SIGNS: His temperature is 98.9, pulse generally in the 80s, blood pressure 139/97, O2 saturation 97%. 24-hour intake 1762, output 2162. HEENT: Unremarkable. NECK: No JVD. LUNGS: Diminished breath sounds in the bases. CARDIAC: S1, S2. Regular. ABDOMEN: Soft. EXTREMITIES: Edematous. LABORATORY DATA: Sodium 144, potassium 5.4, chloride 115, CO2 of 16. His anion gap is 13, BUN 45, creatinine 2.1, and glucose 135. ABG; pH 7.47, pCO2 of 28, pO2 of 121 on assist control, rate 6, tidal volume 450, PEEP 5, pressure support 10, FiO2 of 40%. White blood cell count 8.7, hematocrit 33, and platelet count 225. His x-ray continues to show profound fluid overload. ASSESSMENT: 1. Systolic heart failure. 2. Acute renal dysfunction, worsened by the diuretics yesterday. 3. Acute respiratory failure, requiring mechanical ventilation. 4. Respiratory alkalosis with compensatory non-anion gap metabolic acidosis. RECOMMENDATION: 1. Put the patient back on Dobutrex and limit diuretics. 2. Not weanable at the current time. 3. I will try to re-sedate him so we can decrease his rate and work on his acid-base status. Job ID: [id number]
[2020-05-21] MEDS: DOBUTamine 500 mg/250 ml 250 ML IVPB SCH (11:51)
--- NOTE | 2020-05-21 13:09 | PDOC.HOSPP ---
- Subjective Encounter Date: 05/21/20 Encounter Time: 11:45 Subjective: Discussed with RN. He has a significant gurgling sound. May need more sedation. Talk to the RN. Dr. Poole is following with us - Objective Vital Signs & Weight: Vital Signs (12 hours) Temp Pulse Resp BP 05/21/20 12:00 100.1 F H 18 05/21/20 10:17 98 05/21/20 10:00 25 H 05/21/20 09:31 110 H 132/83 05/21/20 08:00 26 H 05/21/20 07:56 99.0 F 05/21/20 06:57 88 05/21/20 06:00 28 H 05/21/20 05:00 99.9 F H 05/21/20 04:00 27 H 05/21/20 03:14 88 05/21/20 02:00 25 H 05/21/20 01:29 89 Weight Admit Weight 165 lb Weight 167 lb 5.294 oz Most Recent Monitor Data Heart Rate from ECG 100 NIBP 147/95 NIBP BP-Mean 112 Respiration from ECG 18 SpO2 96 I&O: 05/20/20 05/21/20 05/22/20 06:59 06:59 06:59 Intake Total 1762 141.6 150 Output Total 2162 1715 174 Balance -400 -1573.4 -24 Result Diagrams: 05/20/20 07:23 05/21/20 08:36 Hospitalist ROS - Medication Medications: Active Medications Generic Name Dose Route Start Last Admin Trade Name Freq PRN Reason Stop Dose Admin Acetaminophen 650 mg 05/15/20 19:50 05/20/20 20:25 Acetaminophen 325 Mg Tab PO 650 mg Q4H PRN Administration Headache/Fever/Mild Pain (1-3) Aspirin 325 mg 05/16/20 09:00 05/21/20 09:31 Aspirin 325 Mg Tab PO 325 mg DAILY AUGUST Administration Atorvastatin Calcium 40 mg 05/15/20 21:00 05/20/20 20:25 Atorvastatin Calcium 40 Mg Tab PO 40 mg HS AUGUST Administration Enoxaparin Sodium 70 mg 05/16/20 09:00 05/21/20 09:32 Enoxaparin Sodium 80 Mg/0.8 Ml Syringe SC 70 mg 0900 AUGUST Administration Famotidine 20 mg 05/15/20 21:00 05/20/20 20:25 Famotidine/Pf 20 Mg/2ml Vial SLOW IVP 20 mg QPM AUGUST Administration Fentanyl Citrate 2,000 mcg/ 100 mls @ 0 mls/hr 05/16/20 04:15 05/16/20 18:21 Sodium Chloride IV 06/15/20 04:15 100 mls INF AUGUST Administration Protocol Per Protocol Dexmedetomidine HCl 400 mcg/ 100 mls @ 0 mls/hr 05/17/20 09:30 05/21/20 00:12 Sodium Chloride IVPB 100 mls INF AUGUST Administration Protocol Per Protocol Dobutamine HCl/Dextrose 250 mls @ 5.693 mls/hr 05/21/20 11:00 05/21/20 11:51 Dobutamine 500 Mg/250 Ml IVPB 250 mls INF AUGUST Administration Protocol 2.5 MCG/KG/MIN Midazolam HCl 2 mg 05/18/20 15:35 05/21/20 11:54 Midazolam Hcl 2 Mg/2 Ml Vial IVP 2 mg Q1H PRN Administration Agitation Morphine Sulfate 2 mg 05/16/20 04:15 05/21/20 02:15 Morphine 2 Mg/Ml Vial SLOW IVP 06/15/20 04:15 2 mg Q1H PRN Administration Breakthrough Pain/Agitation Ondansetron HCl 4 mg 05/15/20 19:50 05/20/20 20:26 Ondansetron Pf 4 Mg/2 Ml Vial IVP 4 mg Q6H PRN Administration Nausea/Vomiting - Exam General - other findings: On vent Eye: PERRL ENT: normocephalic atraumatic Neck: supple Heart: RRR Respiratory: CTAB, rales, rhonchi Gastrointestinal: soft, normal bowel sounds Neurological: no new deficit Psychiatric: not oriented Hosp A/P - Plan (1) Acute respiratory failure with hypoxia Code(s): J96.01 - ACUTE RESPIRATORY FAILURE WITH HYPOXIA Status: Acute Plan: Due to congestive heart failure, currently on ventilator, pulmonology managing ventilator (2) Acute on chronic decompensated heart failure Code(s): I50.9 - HEART FAILURE, UNSPECIFIED Status: Acute Plan: Acute on chronic systolic heart failure, continue Lasix and Dobutrex, cardiology following, monitor daily electrolytes and renal function as well as input output chart, currently patient is not on beta-hodan or any CLEMENTINE inhibitor or ARB because of low blood pressure (3) NSTEMI (non-ST elevated myocardial infarction) Code(s): I21.4 - NON-ST ELEVATION (NSTEMI) MYOCARDIAL INFARCTION Status: Acute Plan: This is type II myocardial infarction due to demand ischemia from congestive heart failure, (4) Pneumonia Code(s): J18.9 - PNEUMONIA, UNSPECIFIED ORGANISM Status: Ruled-out Plan: Most likely patient does not have any congestive heart failure, this was suspected finding on admission, will discontinue antibiotic therapy today, Pneumonia diagnosis excluded (5) Pleural effusion Code(s): J90 - PLEURAL EFFUSION, NOT ELSEWHERE CLASSIFIED Status: Acute Plan: This is because of worsening of congestive heart failure, patient required thoracentesis as well, patient has bilateral pleural effusion based on current chest x-ray left more than right (6) Acute renal failure superimposed on stage 3 chronic kidney disease Acute tubular necrosis Due to cardiorenal syndrome, continue Lasix and dobutamine, monitor renal function, nephrology following Continue ventilatory support - per pulmonology Continue dobutamine, Continue Lovenox 70 mg subcu Weaning as per pulmonology Full code
[2020-05-21] MEDS: Acetaminophen 325 MG TAB PO PRN (20:48)
[2020-05-21] MEDS: Atorvastatin Calcium 40 MG TAB PO SCH (20:49)
[2020-05-21] MEDS: Famotidine/PF 20 mg/2ml Vial SLOW IVP SCH (20:49)
[2020-05-21 22:40] LABS: #Lymphocytes 0.9 thou/uL (1.20-3.40); #Monocytes 1.1 thou/uL (0.11-0.59); #Neutrophils 7.5 thou/uL (1.40-6.50); %Basophils 0.3 % (0.0-1.0); %Eosinophils 0.3 % (0.0-10.0); %Lymphocytes 9.6 % (21.0-51.0); %Monocytes 11.1 % (0.0-10.0); %Neutrophils 78.7 % (42.0-75.0); Hemoglobin 10.7 g/dL (14.0-18.0); Mean Corpuscular HGB CONC 33.1 g/dL (32.0-36.0); Mean Corpuscular Hemoglobin 28.3 pg (27.0-31.0); Mean Corpuscular Volume 85.5 fL (78.0-98.0); Mean Platelet Volume 7.8 fL (7.4-10.4); Platelet Count 243 thou/uL (130-400); RBC Distribution Width 12.9 % (11.5-14.5); Red Blood Cell (RBC) Count 3.79 mill/uL (4.70-6.10); White Blood Cell (WBC) Count 9.5 thou/uL (4.8-10.8)
[2020-05-21 22:57] LABS: Lactic Acid 0.8 mmol/L (0.5-2.2)
[2020-05-21 23:02] LABS: Anion Gap 14 mmol/L (10-20); BUN (Urea Nitrogen) 46 mg/dL (8.4-25.7); Calc. Creatinine Clearance 33 mL/min (70-130); Calcium 8.2 mg/dL (7.8-10.44); Carbon Dioxide 21 mmol/L (23-31); Chloride 114 mmol/L (98-107); Glucose 116 mg/dL (83-110); Magnesium 2.7 mg/dL (1.6-2.6); Potassium 3.9 mmol/L (3.5-5.1); Sodium 145 mmol/L (136-145)
[2020-05-21 23:18] LABS: Bilirubin Negative (Negative); Blood, Urine 2+ (Negative); Clarity Clear (Clear); Glucose, Urine (Dipstick) Normal (Negative); Ketone, Urine Negative (Negative); Leukocyte Negative Leu/uL (Negative); Nitrite Negative (Negative); Protein, Urine (Dipstick) 70 mg/dL (Neg-Trace); RBC/HPF Greater than 50 HPF (0-3); Specific Gravity, Urine 1.025 (1.002-1.036); Squamous Epithelial 0-3 HPF (0-3); Urobilinogen Normal mg/dL (Less than 2); pH, Urine 5.5 (5.0-9.0)
[2020-05-21 23:19] LABS: Bacteria/HPF Rare-Few HPF (None Seen)
[2020-05-21 23:22] LABS: Urine Culture Reflex Yes Yes
[2020-05-22] MEDS: Morphine 2 MG/ML VIAL SLOW IVP PRN ×4 (00:06→20:49)
[2020-05-22] MEDS: Midazolam HCl 2 mg/2 ml Vial IVP PRN ×10 (00:07→22:19)
[2020-05-22 05:07] LABS: #Basophils 0.1 thou/uL (0.0-0.2); #Lymphocytes 0.9 thou/uL (1.20-3.40); #Monocytes 0.9 thou/uL (0.11-0.59); #Neutrophils 6.9 thou/uL (1.40-6.50); %Basophils 0.7 % (0.0-1.0); %Eosinophils 0.4 % (0.0-10.0); %Monocytes 9.8 % (0.0-10.0); %Neutrophils 79.2 % (42.0-75.0); Hemoglobin 10.4 g/dL (14.0-18.0); Mean Corpuscular HGB CONC 32.2 g/dL (32.0-36.0); Mean Corpuscular Hemoglobin 27.7 pg (27.0-31.0); Mean Corpuscular Volume 85.8 fL (78.0-98.0); Mean Platelet Volume 8.5 fL (7.4-10.4); Platelet Count 256 thou/uL (130-400); RBC Distribution Width 12.9 % (11.5-14.5); Red Blood Cell (RBC) Count 3.77 mill/uL (4.70-6.10); White Blood Cell (WBC) Count 8.8 thou/uL (4.8-10.8)
[2020-05-22 05:38] LABS: Anion Gap 14 mmol/L (10-20); BUN (Urea Nitrogen) 44 mg/dL (8.4-25.7); Calc. Creatinine Clearance 36 mL/min (70-130); Calcium 8.1 mg/dL (7.8-10.44); Carbon Dioxide 22 mmol/L (23-31); Chloride 114 mmol/L (98-107); Glucose 108 mg/dL (83-110); Potassium 3.8 mmol/L (3.5-5.1); Sodium 146 mmol/L (136-145)
[2020-05-22] MEDS: Enoxaparin Sodium 80 MG/0.8 ML SYRINGE SC SCH (08:25)
[2020-05-22] MEDS: Aspirin 325 MG TAB PO SCH (08:25)
[2020-05-22] MEDS ORDERED: Furosemide 40 MG/4 ML VIAL SLOW IVP SCH (09:15)
[2020-05-22] MEDS: hydrALAZINE 10 MG TAB PO SCH ×3 (10:38→20:48)
--- NOTE | 2020-05-22 11:28 | PRG ---
DATE OF SERVICE: 05/22/2020 SUBJECTIVE: Mr. Lester is a 79-year-old [place] male, who was admitted for an acute respiratory failure. He was subsequently intubated and placed on ventilator support. We are also following up this patient for his acute kidney injury secondary to acute tubular necrosis. Creatinine has been fluctuating. Due to the higher creatinine yesterday of 2.2, we held off the diuretics. He was also found to be in CHF. No acute events noted last night. OBJECTIVE: VITAL SIGNS: Blood pressure is 139/88, heart rate 98, respiratory rate 20, O2 saturation 98%. GENERAL: The patient is arousable, intubated, on ventilator support. SKIN: Adequate turgor. HEENT: Pinkish conjunctivae. Anicteric sclerae. NECK: No neck mass. No carotid bruits. No JVD. CHEST: No deformities. LUNGS: Decreased breath sounds. HEART: Normal sinus rhythm. No murmur. No gallops. No rubs. ABDOMEN: Globular, soft, nontender. No masses. EXTREMITIES: No edema. MEDICATIONS: Medications of May 22, 2020, were reviewed. LABORATORY DATA: Laboratories of May 22, 2020; white count 8.8, hemoglobin 10.4. Sodium 146, potassium 3.8, chloride 114, carbon dioxide 22, BUN 44, creatinine 1.78, glucose 108, calcium 8.1, magnesium 2.7. Chest x-ray, improving aeration, still with a mild CHF. ASSESSMENT AND PLAN: 1. Acute kidney injury - secondary to acute tubular necrosis. Continue supportive care. No indication for any dialytic intervention. Renal function is stabilizing. 2. CHF - we will give Lasix 40 mg IV x1 dose today. Creatinine is improving and for this reason, we can go ahead and give the Lasix. 3. Acute respiratory failure, multifactorial etiology. The patient also with underlying CHF. Overall prognosis remains guarded. Recheck CBC, basic metabolic in a.m. Job ID: [id number]
--- NOTE | 2020-05-22 13:39 | PRG ---
DATE OF SERVICE: 05/22/2020 SUBJECTIVE: Mr. Lester did have difficulty over the weekend getting extubated. The patient developed hypertension and tachycardia. I reviewed his echo. Once again, his LVEF does appear to be estimated at 30%. No significant valvular regurgitation was noted. OBJECTIVE: VITAL SIGNS: Blood pressure 130/84, pulse 96, respirations 20. LUNGS: Decreased breath sounds noted bilaterally. HEART: Regular rate and rhythm. ABDOMEN: Soft, nontender, nondistended. EXTREMITIES: No edema. NEUROLOGIC: Currently intubated, sedated. PERTINENT LABORATORY DATA: Hemoglobin 10.4, hematocrit 32.4, white blood cell count 8.8. Creatinine 1.78, down from 1.96. IMPRESSION: 1. Acute systolic heart failure. 2. Respiratory failure. RECOMMENDATIONS: I discussed the case with Tito Lester, his son today. Decision should be made would proceed with a more aggressive versus more conservative approach. At this point, he likely had an ischemic cardiomyopathy that is causing difficulty on removal of the ventilator. He does not appear to have acute mitral regurgitation or aortic insufficiency, but could have ischemic MR. I discussed risks and benefits of proceeding with both approaches. I discussed the procedure in full detail. Risks included but not limited to the following: , stroke, ME, need for emergency surgery, loss of limb, bleeding, and infection, as well as a reaction to the dye causing kidney failure and needing long-term dialysis. I also discussed the risks of PCI to include all of the above including coronary dissection and perforation in addition to acute stent thrombosis and restenosis. All questions about the procedure were answered. Given the above, the patient agreed to proceed with coronary angiography and possible PCI. All questions answered. Patient would like to discuss this with family. He has had a DNR in place in the past and does not wish to be aggressive. At this point, decision will lie on the power of floor waxer. If the decision is made to proceed with coronary angiography, we will proceed in a.m. Job ID: [id number]
--- NOTE | 2020-05-22 14:15 | PRG ---
DATE OF SERVICE: 05/22/2020 SUBJECTIVE: Navjot really had made much progress over the weekend. OBJECTIVE: VITAL SIGNS: He is 125/75, heart rate 94, respiratory rate is 21. LUNGS: Remarkable for distant breath sounds. HEART: Regular rhythm. ABDOMEN: Soft. EXTREMITIES: Without edema. LABORATORY DATA: White count 8.8, hemoglobin 10.4, platelets 256. Sodium 146, potassium 3.8, chloride 114, bicarb 22, BUN 44, creatinine 1.78. Intake and outputs negative 321. Pleural fluid was reviewed and was benign. Fluid was clearly transudative. IMPRESSION: Congestive heart failure. Discussed with Dr. Vasques ischemic mitral regurg aggravating these problems. He has not improved as one would expect congestive heart failure. Dr. Vasques is contemplating cardiac catheterization. Critical care time 35 min. Job ID: [id number] MTDD
[2020-05-22] MEDS ORDERED: Communication Order-Pharmacy FS SCH (16:15)
[2020-05-22] MEDS: Sodium Chloride 0.9% 1,000 ML IV SCH (16:42)
--- NOTE | 2020-05-22 19:40 | PDOC.HOSPP ---
- Subjective Encounter Date: 05/22/20 non-verbal - Objective Vital Signs & Weight: Vital Signs (12 hours) Pulse Resp BP Pulse Ox 05/22/20 18:00 19 05/22/20 16:37 91 140/71 05/22/20 16:00 22 H 05/22/20 15:00 91 140/71 05/22/20 14:55 98 129/80 05/22/20 14:00 20 05/22/20 12:00 13 05/22/20 11:05 96 138/84 05/22/20 10:38 97 142/88 H 05/22/20 10:00 21 H 05/22/20 08:00 20 99 Weight Admit Weight 165 lb Weight 162 lb 11.218 oz Most Recent Monitor Data Heart Rate from ECG 98 NIBP 140/85 NIBP BP-Mean 103 Respiration from ECG 15 SpO2 100 I&O: 05/21/20 05/22/20 05/23/20 06:59 06:59 06:59 Intake Total 141.6 687.3 452 Output Total 1715 1009 [facility] Balance -1573.4 -321.7 -1523 Result Diagrams: 05/22/20 03:30 05/22/20 03:30 Hospitalist ROS - Review of Systems ROS unobtainable: due to endotracheal tube - Medication Medications: Active Medications Generic Name Dose Route Start Last Admin Trade Name Freq PRN Reason Stop Dose Admin Acetaminophen 650 mg 05/15/20 19:50 05/21/20 20:48 Acetaminophen 325 Mg Tab PO 650 mg Q4H PRN Administration Headache/Fever/Mild Pain (1-3) Aspirin 325 mg 05/16/20 09:00 05/22/20 08:25 Aspirin 325 Mg Tab PO 325 mg DAILY AUGUST Administration Atorvastatin Calcium 40 mg 05/15/20 21:00 05/21/20 20:49 Atorvastatin Calcium 40 Mg Tab PO 40 mg HS AUGUST Administration Enoxaparin Sodium 70 mg 05/16/20 09:00 05/22/20 08:25 Enoxaparin Sodium 80 Mg/0.8 Ml Syringe SC 05/22/20 21:00 70 mg 0900 AUGUST Administration Famotidine 20 mg 05/15/20 21:00 05/21/20 20:49 Famotidine/Pf 20 Mg/2ml Vial SLOW IVP 20 mg QPM AUGUST Administration Hydralazine HCl 20 mg 05/21/20 15:00 05/22/20 16:37 Hydralazine 10 Mg Tab PO Not Given TID AUGUST Fentanyl Citrate 2,000 mcg/ 100 mls @ 0 mls/hr 05/16/20 04:15 05/16/20 18:21 Sodium Chloride IV 06/15/20 04:15 100 mls INF AUGUST Administration Protocol Per Protocol Dexmedetomidine HCl 400 mcg/ 100 mls @ 0 mls/hr 05/17/20 09:30 05/22/20 10:39 Sodium Chloride IVPB 100 mls INF AUGUST Administration Protocol Per Protocol Dobutamine HCl/Dextrose 250 mls @ 5.693 mls/hr 05/21/20 11:00 05/21/20 11:51 Dobutamine 500 Mg/250 Ml IVPB 250 mls INF AUGUST Administration Protocol 2.5 MCG/KG/MIN Sodium Chloride 1,000 mls @ 100 mls/hr 05/22/20 16:15 05/22/20 16:42 Normal Saline 0.9% IV 1,000 mls .Q10H AUGUST Administration Midazolam HCl 2 mg 05/18/20 15:35 05/22/20 16:40 Midazolam Hcl 2 Mg/2 Ml Vial IVP 2 mg Q1H PRN Administration Agitation Morphine Sulfate 2 mg 05/16/20 04:15 05/22/20 16:40 Morphine 2 Mg/Ml Vial SLOW IVP 06/15/20 04:15 2 mg Q1H PRN Administration Breakthrough Pain/Agitation Ondansetron HCl 4 mg 05/15/20 19:50 05/20/20 20:26 Ondansetron Pf 4 Mg/2 Ml Vial IVP 4 mg Q6H PRN Administration Nausea/Vomiting - Exam General - other findings: Sedated on mechanical ventilation Heart: RRR, no murmur, no gallops, no rubs Respiratory - other findings: Bilateral rales/upper respiratory sounds Gastrointestinal: soft, non-distended Neurological - other findings: Sedated Hosp A/P - Plan old records reviewed/req A/P: Currently on mechanical ventilation due to persistent respiratory failure due to acute on chronic decompensated heart failure. Cardiology and pulmonary service follow. # Respiratory failure: In setting of decompensated CHF. Pulmonary directing mechanical ventilation and sedation. Per discussion with pants cutter considering cardiac cath to rule out significant valvulopathy. Continue with IV Diuresis PRN due to fragil renal function. Continue with dobutrex. # NSTEMI: Type II [place] due to demand ischemia. Continue with ASA plus statin. Cardiology follows. Possible cardiac cath for further evaluation. # Pleural effusion: Per above plan. Pulmonary service follows. # CHIO on CKD: In setting of cardiorenal syndrome. Careful use of diuresis. Continue with inotropic support to help with renal perfusion. Nephrology follows. DISPOSITION: Remains critically ill. Possible cardiac cath being planned. Continue with close monitoring in the ICU.
[2020-05-22] MEDS: Famotidine/PF 20 mg/2ml Vial SLOW IVP SCH (20:48)
[2020-05-22] MEDS: Atorvastatin Calcium 40 MG TAB PO SCH (20:49)
[2020-05-23] MEDS: Midazolam HCl 2 mg/2 ml Vial IVP PRN ×10 (00:38→21:54)
[2020-05-23] MEDS: Morphine 2 MG/ML VIAL SLOW IVP PRN ×3 (00:44→19:48)
[2020-05-23] MEDS: Acetaminophen 325 MG TAB PO PRN (00:44)
[2020-05-23] MEDS: Sodium Chloride 0.9% 1,000 ML IV SCH ×2 (03:11→13:32)
[2020-05-23 04:35] LABS: #Basophils 0.1 thou/uL (0.0-0.2); #Lymphocytes 0.7 thou/uL (1.20-3.40); #Monocytes 0.8 thou/uL (0.11-0.59); #Neutrophils 5.7 thou/uL (1.40-6.50); %Basophils 0.7 % (0.0-1.0); %Eosinophils 0.3 % (0.0-10.0); %Lymphocytes 9.6 % (21.0-51.0); %Monocytes 10.8 % (0.0-10.0); %Neutrophils 78.7 % (42.0-75.0); Hemoglobin 10.7 g/dL (14.0-18.0); Mean Corpuscular HGB CONC 32.6 g/dL (32.0-36.0); Mean Corpuscular Hemoglobin 27.8 pg (27.0-31.0); Mean Corpuscular Volume 85.1 fL (78.0-98.0); Platelet Count 249 thou/uL (130-400); RBC Distribution Width 12.9 % (11.5-14.5); Red Blood Cell (RBC) Count 3.86 mill/uL (4.70-6.10); White Blood Cell (WBC) Count 7.2 thou/uL (4.8-10.8)
[2020-05-23 04:57] LABS: Anion Gap 15 mmol/L (10-20); BUN (Urea Nitrogen) 38 mg/dL (8.4-25.7); Calc. Creatinine Clearance 36 mL/min (70-130); Calcium 8.1 mg/dL (7.8-10.44); Carbon Dioxide 23 mmol/L (23-31); Chloride 113 mmol/L (98-107); Glucose 112 mg/dL (83-110); Potassium 3.8 mmol/L (3.5-5.1); Sodium 147 mmol/L (136-145)
[2020-05-23] MEDS ORDERED: Morphine 2 MG/ML VIAL ONE (07:17)
[2020-05-23] MEDS ORDERED: Midazolam HCl 2 mg/2 ml Vial ONE (07:17)
[2020-05-23] MEDS ORDERED: Acetaminophen/Codeine 30-300mg Tablet PO PRN ×2 (08:27)
[2020-05-23] MEDS ORDERED: Sodium Chloride 0.9% 200 ML IV PRN (08:27)
[2020-05-23] MEDS ORDERED: Nitroglycerin 0.4 MG TAB (25 Tab Bottle) SL PRN (08:27)
[2020-05-23] MEDS ORDERED: Sodium Chloride 0.9% 1,000 ML IV SCH (08:30)
[2020-05-23] MEDS: Aspirin 325 MG TAB PO SCH (09:22)
--- NOTE | 2020-05-23 09:23 | PRG ---
DATE OF SERVICE: 05/23/2020 SUBJECTIVE: Mr. Lester is a 79-year-old male/[place] male, who was admitted for acute respiratory failure. He was subsequently intubated and currently on ventilator support. He also was noted to have elevated troponin-I. He was also noted to be in CHF. We are following up this patient for the acute kidney injury, which is secondary to acute tubular necrosis. He underwent a cardiac cath this morning and significant coronary artery disease was noted. Surgical consult has been done with Dr. Wilson. OBJECTIVE: VITAL SIGNS: Blood pressure is 151/88, heart rate 94, respiratory rate 18, O2 saturation 99%. GENERAL: The patient is sedated, intubated, on ventilator support. SKIN: Adequate turgor. HEENT: Pinkish conjunctivae. Anicteric sclerae. No neck mass. No carotid bruits. No JVD. CHEST: No deformities. LUNGS: Decreased breath sounds. HEART: Normal sinus rhythm. No murmurs. No gallops. No rubs. ABDOMEN: Globular, soft, nontender. No masses. EXTREMITIES: No edema. MEDICATIONS: May 23, 2020, were reviewed. LABORATORY DATA: May 23, 2020; white count 7.2, hemoglobin 10.7. Sodium 147, potassium 4.8, chloride 113, carbon dioxide 23, BUN 38, creatinine 1.76, glucose 112, and calcium 8.1. ASSESSMENT AND PLAN: 1. Acute kidney injury - stable renal function, secondary to acute tubular necrosis with creatinine 1.76, is stable compared to yesterday. No indication for any dialytic intervention. 2. NSTEMI - the patient is status post cardiac cath with significant coronary artery disease. Surgical consult with Dr. Wilson has been done. 3. Acute respiratory failure, currently on ventilator support. Pulmonary is following. Overall prognosis remains guarded. Recheck CBC and basic metabolic panel in a.m. Job ID: [id number] [facility]
[2020-05-23] MEDS: hydrALAZINE 10 MG TAB PO SCH ×3 (09:55→20:18)
[2020-05-23] MEDS: DOBUTamine 500 mg/250 ml 250 ML IVPB SCH (10:14)
[2020-05-23] MEDS ORDERED: Iopamidol 370 76% 100 ML VIAL ONE (12:51)
--- NOTE | 2020-05-23 14:49 | PRG ---
DATE OF SERVICE: 05/23/2020 SUBJECTIVE: Navjot Lester remains mechanically ventilated. He underwent cardiac catheterization, which showed left main and severe triple-vessel disease, which may explain why we have not been able wean him from mechanical ventilation. OBJECTIVE: LUNGS: Unchanged. HEART: Unchanged. ABDOMEN: Unchanged. LABORATORY DATA: White count 7.2, hemoglobin 10.7, platelets 249. Electrolytes; sodium 147, potassium 3.8, chloride 113, bicarb 23, BUN 38, creatinine 1.78. IMPRESSION AND PLAN: Respiratory failure associated with congestive heart failure and critical coronary artery disease. I do not feel he will survive without surgery. It is debatable whether he will survive with surgery, but I do think he has a reasonable chance of surviving. He is intermittently since he has been in the hospital. I do believe he is fairly sensitive to sedative drugs. Hopefully, the renal function does not take a cardiac catheterization. His son is trying to decide whether or not his dad would want surgery. I have explained to him that he has to make these choices on a day-by-day basis. I do feel strongly that without surgery, he will pass away. Extubation will likely be a terminal extubation. Plan to meet with his sister by phone and talk to his and get back with us later today. Critical care time 30 min. Job ID: [id number] MTDD
--- NOTE | 2020-05-23 16:56 | PRG ---
DATE OF SERVICE: 05/23/2020 I have had another conversation with the son this evening and he states he and the family are not ready to make a decision in regard to surgery. I have tried to explain to him that the patient has been on the ventilator for eight days and if we are going to seriously consider trying to save him that surgery needs to be done sooner rather than later. I have tried to encourage them to proceed with surgery tomorrow as they think that surgical intervention is to be considered and they still are not convinced that they want him to have any surgery. So at this time, we will sign off and the patient can be treated medically. Job ID: [id number]
--- NOTE | 2020-05-23 18:13 | PDOC.HOSPP ---
- Subjective Encounter Date: 05/23/20 Subjective: Intubated and mechanically ventilated. - Objective Vital Signs & Weight: Vital Signs (12 hours) Temp Pulse Resp BP Pulse Ox 05/23/20 18:00 22 H 05/23/20 16:00 22 H 05/23/20 15:31 107 H 161/109 H 05/23/20 15:28 107 H 161/109 H 05/23/20 15:00 98.9 F 05/23/20 14:00 16 05/23/20 12:00 99 F 20 05/23/20 11:20 100 155/98 H 05/23/20 10:00 18 05/23/20 09:55 92 148/90 H 05/23/20 08:00 98.4 F 20 100 05/23/20 07:10 92 148/90 H Weight Admit Weight 165 lb Weight 162 lb 11.218 oz Most Recent Monitor Data Heart Rate from ECG 104 NIBP 142/87 NIBP BP-Mean 105 Respiration from ECG 9 SpO2 98 I&O: 05/22/20 05/23/20 05/24/20 06:59 06:59 06:59 Intake Total 687.3 2216.5 895 Output Total 1009 2540 580 Balance -321.7 -323.5 315 Result Diagrams: 05/23/20 04:03 05/23/20 04:03 Hospitalist ROS - Review of Systems ROS unobtainable: due to endotracheal tube - Medication Medications: Active Medications Generic Name Dose Route Start Last Admin Trade Name Freq PRN Reason Stop Dose Admin Acetaminophen 650 mg 05/15/20 19:50 05/23/20 00:44 Acetaminophen 325 Mg Tab PO 650 mg Q4H PRN Administration Headache/Fever/Mild Pain (1-3) Acetaminophen/Codeine Phosphate 2 tab 05/23/20 08:27 05/23/20 16:27 Acetaminophen/Codeine 30-300mg Tablet PO 2 tab Q4H PRN Administration Moderate Pain (4-6) Aspirin 325 mg 05/16/20 09:00 05/23/20 09:22 Aspirin 325 Mg Tab PO 325 mg DAILY AUGUST Administration Atorvastatin Calcium 40 mg 05/15/20 21:00 05/22/20 20:49 Atorvastatin Calcium 40 Mg Tab PO 40 mg HS AUGUST Administration Famotidine 20 mg 05/15/20 21:00 05/22/20 20:48 Famotidine/Pf 20 Mg/2ml Vial SLOW IVP 20 mg QPM AUGUST Administration Hydralazine HCl 20 mg 05/21/20 15:00 05/23/20 15:31 Hydralazine 10 Mg Tab PO 20 mg TID AUGUST Administration Fentanyl Citrate 2,000 mcg/ 100 mls @ 0 mls/hr 05/16/20 04:15 05/16/20 18:21 Sodium Chloride IV 06/15/20 04:15 100 mls INF AUGUST Administration Protocol Per Protocol Dexmedetomidine HCl 400 mcg/ 100 mls @ 0 mls/hr 05/17/20 09:30 05/23/20 17:49 Sodium Chloride IVPB 100 mls INF AUGUST Administration Protocol Per Protocol Dobutamine HCl/Dextrose 250 mls @ 5.693 mls/hr 05/21/20 11:00 05/23/20 10:14 Dobutamine 500 Mg/250 Ml IVPB 250 mls INF AUGUST Administration Protocol 2.5 MCG/KG/MIN Sodium Chloride 1,000 mls @ 75 mls/hr 05/22/20 16:15 05/23/20 13:32 Normal Saline 0.9% IV 1,000 mls .[id number] AUGUST Administration Midazolam HCl 2 mg 05/18/20 15:35 05/23/20 17:45 Midazolam Hcl 2 Mg/2 Ml Vial IVP 2 mg Q1H PRN Administration Agitation Morphine Sulfate 2 mg 05/16/20 04:15 05/23/20 06:18 Morphine 2 Mg/Ml Vial SLOW IVP 06/15/20 04:15 2 mg Q1H PRN Administration Breakthrough Pain/Agitation Ondansetron HCl 4 mg 05/15/20 19:50 05/20/20 20:26 Ondansetron Pf 4 Mg/2 Ml Vial IVP 4 mg Q6H PRN Administration Nausea/Vomiting - Exam General - other findings: Sedated on mechanical ventilation Heart: RRR, no murmur, no gallops, no rubs, normal peripheral pulses Respiratory - other findings: Bilateral rales/upper respiratory sounds Gastrointestinal: non-distended, normal bowel sounds Neurological - other findings: Sedated Hosp A/P - Plan A/P: Currently on mechanical ventilation due to persistent respiratory failure due to acute on chronic decompensated heart failure. Cardiology and pulmonary service follow. # Respiratory failure: In setting of decompensated CHF. Pulmonary directing mechanical ventilation and sedation. Per discussion with shear helper cardiac cath with significant multivessel disease. CTS consulted and initially advocating for surgical intervention. Family is not convinced that Mr. Lester would want surgery and as such patient is currently to be treated medically. Continue with IV Diuresis PRN due to fragil renal function. Continue with dobutrex. # NSTEMI: Cath with evidence of multi vessel disease. Type II [place] due to demand ischemia. Continue with ASA plus statin. Cardiology follows. # Pleural effusion: Per above plan. Pulmonary service follows. # CHIO on CKD: In setting of cardiorenal syndrome. Careful use of diuresis. Continue with inotropic support to help with renal perfusion. Nephrology follows. DISPOSITION: Remains critically ill. Family has decided at this point against surgical intervention for multivessel disease. Prognosis is guarded. Continue with close monitoring in the ICU.
[2020-05-23] MEDS: Famotidine/PF 20 mg/2ml Vial SLOW IVP SCH (20:19)
[2020-05-23] MEDS: Atorvastatin Calcium 40 MG TAB PO SCH (20:19)
--- NOTE | 2020-05-23 20:19 | CON ---
DATE OF CONSULTATION: HISTORY OF PRESENT ILLNESS: This is a 79-year-old gentleman who presented to the emergency on 05/15 with acute onset of respiratory distress; although, he may have been feeling poorly for about 5 days prior. The patient was living alone at least for the past 10 months after a nephew had moved out. The patient's was . He received little to no medical care in the past and had no major medical illnesses. On evaluation, he was felt to have had an acute probable anterior MS with a possible COVID. He required intubation in the emergency room, which happened without incident on first pass. He was admitted to the hospital, where a cardiac echo showed an ejection fraction of about 30% with mild MR. At least 2 separate attempts at weaning from the ventilator were unsuccessful. The patient's troponin was about 10-11 and peak CPK was about 600. He underwent cardiac catheterization today demonstrating a high-grade proximal left main stenosis with a subtotally occluded LAD and small diffusely diseased distal vessel. The circumflex consisted of a single sizable OM and then the distal circumflex consisted of 4 small branches that were occluded. The right coronary artery was essentially occluded distally and had 2 small branches on the bottom of the heart. The patient had a CT scan of the brain, which was not remarkable. He is awakened somewhat from the ventilator, but never fully awake. PHYSICAL EXAMINATION: RESPIRATORY: On examination, he is a ventilated gentleman in no distress with some rhonchi bilaterally. CARDIAC EXAM: With regular resting tachycardia with no murmurs. Carotid auscultation with no bruits. GI: His abdomen was firm and nontender. CHEST: Breasts were protuberant related to prior silicone injections with a bar of silicone across the lower sternum. EXTREMITIES: Without edema and he had palpable femoral and popliteal pulses with no pedal pulses. PLAN: I had a long discussion with the patient's son and then discussed with Dr. Vasques and Jalil. I have offered coronary bypass grafting to the LAD and OM, and currently the son is considering his options, trying to keep his father's presumed wishes in mind. Job ID: [id number]
[2020-05-24] MEDS: Sodium Chloride 0.9% 1,000 ML IV SCH ×2 (00:11→12:53)
[2020-05-24] MEDS: Midazolam HCl 2 mg/2 ml Vial IVP PRN ×8 (00:18→15:20)
[2020-05-24] MEDS: Morphine 2 MG/ML VIAL SLOW IVP PRN ×7 (00:23→17:05)
[2020-05-24 04:30] LABS: #Lymphocytes 0.6 thou/uL (1.20-3.40); #Neutrophils 6.8 thou/uL (1.40-6.50); %Basophils 0.2 % (0.0-1.0); %Eosinophils 0.4 % (0.0-10.0); %Lymphocytes 7.6 % (21.0-51.0); %Monocytes 11.7 % (0.0-10.0); %Neutrophils 80.1 % (42.0-75.0); Mean Corpuscular HGB CONC 31.2 g/dL (32.0-36.0); Mean Corpuscular Hemoglobin 26.8 pg (27.0-31.0); Mean Corpuscular Volume 86.1 fL (78.0-98.0); Mean Platelet Volume 7.9 fL (7.4-10.4); Platelet Count 248 thou/uL (130-400); Red Blood Cell (RBC) Count 4.11 mill/uL (4.70-6.10); White Blood Cell (WBC) Count 8.4 thou/uL (4.8-10.8)
[2020-05-24 04:54] LABS: Anion Gap 14 mmol/L (10-20); BUN (Urea Nitrogen) 32 mg/dL (8.4-25.7); Calc. Creatinine Clearance 42 mL/min (70-130); Calcium 7.8 mg/dL (7.8-10.44); Carbon Dioxide 21 mmol/L (23-31); Chloride 116 mmol/L (98-107); Glucose 101 mg/dL (83-110); Potassium 4.1 mmol/L (3.5-5.1); Sodium 147 mmol/L (136-145)
[2020-05-24] MEDS: hydrALAZINE 10 MG TAB PO SCH ×2 (08:01→15:03)
[2020-05-24] MEDS: Aspirin 325 MG TAB PO SCH (08:01)
--- NOTE | 2020-05-24 09:11 | PDOC.HOSPP ---
- Subjective Encounter Date: 05/24/20 non-verbal (Remains sedated/intubated) - Objective Vital Signs & Weight: Vital Signs (12 hours) Temp Pulse Resp BP Pulse Ox 05/24/20 08:21 95 149/93 H 05/24/20 08:01 96 149/93 H 05/24/20 08:00 98.5 F 21 H 98 05/24/20 06:00 25 H 05/24/20 04:00 98.6 F 22 H 05/24/20 02:00 27 H 05/24/20 00:00 98.5 F 24 H 05/23/20 22:00 22 H Weight Admit Weight 165 lb Weight 167 lb 1.766 oz Most Recent Monitor Data Heart Rate from ECG 97 NIBP 143/96 NIBP BP-Mean 111 Respiration from ECG 0 SpO2 100 I&O: 05/23/20 05/24/20 05/25/20 06:59 06:59 06:59 Intake Total 2216.5 2305 Output Total 2540 1255 160 Balance -323.5 1050 -160 Result Diagrams: 05/24/20 04:08 05/24/20 04:08 Hospitalist ROS - Review of Systems ROS unobtainable: due to endotracheal tube - Medication Medications: Active Medications Generic Name Dose Route Start Last Admin Trade Name Freq PRN Reason Stop Dose Admin Acetaminophen 650 mg 05/15/20 19:50 05/23/20 00:44 Acetaminophen 325 Mg Tab PO 650 mg Q4H PRN Administration Headache/Fever/Mild Pain (1-3) Acetaminophen/Codeine Phosphate 2 tab 05/23/20 08:27 05/23/20 16:27 Acetaminophen/Codeine 30-300mg Tablet PO 2 tab Q4H PRN Administration Moderate Pain (4-6) Aspirin 325 mg 05/16/20 09:00 05/24/20 08:01 Aspirin 325 Mg Tab PO 325 mg DAILY AUGUTS Administration Atorvastatin Calcium 40 mg 05/15/20 21:00 05/23/20 20:19 Atorvastatin Calcium 40 Mg Tab PO 40 mg HS AUGUST Administration Famotidine 20 mg 05/15/20 21:00 05/23/20 20:19 Famotidine/Pf 20 Mg/2ml Vial SLOW IVP 20 mg QPM AUGUST Administration Hydralazine HCl 20 mg 05/21/20 15:00 05/24/20 08:01 Hydralazine 10 Mg Tab PO 20 mg TID AUGUST Administration Fentanyl Citrate 2,000 mcg/ 100 mls @ 0 mls/hr 05/16/20 04:15 05/16/20 18:21 Sodium Chloride IV 06/15/20 04:15 100 mls INF AUGUST Administration Protocol Per Protocol Dexmedetomidine HCl 400 mcg/ 100 mls @ 0 mls/hr 05/17/20 09:30 05/24/20 05:50 Sodium Chloride IVPB 100 mls INF AUGUST Administration Protocol Per Protocol Dobutamine HCl/Dextrose 250 mls @ 5.693 mls/hr 05/21/20 11:00 05/23/20 10:14 Dobutamine 500 Mg/250 Ml IVPB 250 mls INF AUGUST Administration Protocol 2.5 MCG/KG/MIN Sodium Chloride 1,000 mls @ 75 mls/hr 05/22/20 16:15 05/24/20 00:11 Normal Saline 0.9% IV 1,000 mls .[id number] AUGUST Administration Midazolam HCl 2 mg 05/18/20 15:35 05/24/20 07:45 Midazolam Hcl 2 Mg/2 Ml Vial IVP 2 mg Q1H PRN Administration Agitation Morphine Sulfate 2 mg 05/16/20 04:15 05/24/20 05:50 Morphine 2 Mg/Ml Vial SLOW IVP 06/15/20 04:15 2 mg Q1H PRN Administration Breakthrough Pain/Agitation Ondansetron HCl 4 mg 05/15/20 19:50 05/20/20 20:26 Ondansetron Pf 4 Mg/2 Ml Vial IVP 4 mg Q6H PRN Administration Nausea/Vomiting - Exam General Appearance: ill appearing (Sedated/intubated) Heart: RRR, no murmur, no gallops Respiratory - other findings: Intubated/coarse upper respiratory sounds Gastrointestinal: soft, non-distended Neurological - other findings: Sedated/intubated Hosp A/P - Plan A/P: Currently on mechanical ventilation due to persistent respiratory failure due to acute on chronic decompensated heart failure. Cardiology, pulmonary and nephrology service follow. Per my conversation with palliative care family planning to transition to [facility]/Hospice and proceed with terminal extubation on 05-24-20. # Respiratory failure: In setting of decompensated CHF. Pulmonary directing mechanical ventilation and sedation. Per discussion with washhouse worker cardiac cath with significant multivessel disease. CTS consulted and initially advocating for surgical intervention. After family meeting it was decided to transition patient to [facility] for admission to hospice. Per my discussion with palliative care there is a plan for terminal extubation on 05-24-20. # NSTEMI: Cath with evidence of multi vessel disease. Type II ID due to demand ischemia. Patient is transitioning to [facility]/Hospice. # Pleural effusion: Per above plan. [facility]/Hospice. # CHIO on CKD: In setting of cardiorenal syndrome. [facility]/Hospice. DISPOSITION: Remains critically ill. Family has decided at this point against surgical intervention and would like to transition to [facility]/Hospice per known patient wishes.
--- NOTE | 2020-05-24 09:49 | PRG ---
DATE OF SERVICE: 05/24/2020 SUBJECTIVE: Mr. Lester is a 79-year-old Sinhala male, who was admitted for acute respiratory failure and for NSTEMI. We are following this patient up for his acute kidney injury, which was felt to be secondary to acute tubular necrosis. He was also found to have NSTEMI and CHF. He gets p.r.n. Lasix. He also underwent a cardiac cath, which showed severe coronary artery disease. Cardiothoracic Surgery was consulted. However, the family was undecided whether to pursue with an open-heart. Dr. Wilson will be signing off temporarily until the family can decide on the patient. No acute events noted last night. OBJECTIVE: VITAL SIGNS: Blood pressure 143/96, heart rate 97, respiratory rate 15, O2 saturation 100%. GENERAL: Sedated, intubated, on ventilator support. SKIN: Adequate turgor. HEENT: Pinkish conjunctivae. Anicteric sclerae. No neck mass. No carotid bruits. No JVD. CHEST: No deformities. LUNGS: Decreased breath sounds. HEART: Normal sinus rhythm. No murmurs. No gallops. No rubs. ABDOMEN: Globular, soft, nontender. EXTREMITIES: No edema. MEDICATIONS: May 24, 2020, were reviewed. LABORATORY DATA: May 24, 2020; white count 8.4, hemoglobin is 11. Sodium 147, potassium 4.1, chloride 116, carbon dioxide 21, BUN 32, creatinine 1.5, GFR 45 mL/minute, calcium 7.8. ASSESSMENT AND PLAN: 1. Acute kidney injury - secondary to presumed ischemic acute tubular necrosis, stabilizing renal function. Creatinine is actually slightly improved at 1.5. No indication for any dialytic intervention. 2. Congestive heart failure. We will give a one time dose of Lasix 40 mg IV. 3. Acute respiratory failure, currently on ventilator support. Pulmonary following. Diuresed as needed, so the patient can be extubated. 4. Coronary artery disease, status post myocardial infarction - family undecided whether to pursue with coronary artery bypass grafting. 5. Overall prognosis remains guarded. Job ID: [id number]
[2020-05-24] MEDS ORDERED: Furosemide 40 MG/4 ML VIAL SLOW IVP SCH (10:00)
[2020-05-24 13:33] VITALS: BMI 27.8
--- NOTE | 2020-05-24 14:10 | PRG ---
DATE OF SERVICE: 05/24/2020 SUBJECTIVE: Mr. Lester continues to be intubated, sedated. No significant changes noted overnight. He continues to be on low-dose . OBJECTIVE: VITAL SIGNS: Blood pressure 147/96, pulse 96, temperature afebrile. LUNGS: Clear to auscultation. HEART: Regular rate and rhythm. ABDOMEN: Soft, nontender, nondistended. EXTREMITIES: 1+ pitting edema. PERTINENT LABORATORY DATA: Hemoglobin 11.0. Creatinine down from 1.76 to 1.5. IMPRESSION: 1. Respiratory failure. 2. Severe coronary artery disease. 3. Severe cardiomyopathy. 4. Mild renal insufficiency. RECOMMENDATIONS: Certainly, Mr. Lester has no reasonable options for percutaneous intervention to a severely stenosed left main in addition to the LAD, OM branch and right coronary artery. His only option at this point is bypass surgery. Dr. Duy Wilson had extensive conversations with the Trevon's family. They have had difficulty deciding on whether they would like to proceed with comfort measures versus bypass surgery. Mr. Lester in the past has expressed wishes for conservative therapy, but power of activated sludge attendant would like to speak further with his family. Otherwise from my standpoint, I have no further recommendations. Continue current course and await decision from the family on how to proceed. Job ID: [id number]
[2020-05-24 17:24] VITALS: BP 138/83
--- NOTE | 2020-05-24 17:24 | PDOC.FMACP ---
Advance Care Planning - Problem (1) Palliative care encounter Status: Acute Code(s): Z51.5 - ENCOUNTER FOR PALLIATIVE CARE (2) Acute decompensated heart failure Status: Acute Code(s): I50.9 - HEART FAILURE, UNSPECIFIED (3) Acute renal failure Status: Acute Qualifiers: Acute renal failure type: with acute tubular necrosis Qualified Code(s): N17.0 - Acute kidney failure with tubular necrosis (4) Acute respiratory failure requiring reintubation Status: Acute Code(s): J96.00 - ACUTE RESPIRATORY FAILURE, UNSP W HYPOXIA OR HYPERCAPNIA (5) NSTEMI (non-ST elevated myocardial infarction) Status: Acute Code(s): I21.4 - NON-ST ELEVATION (NSTEMI) MYOCARDIAL INFARCTION - Note Participants: family, deputy commissioner, palliative care Summary: Palliative care addressed Advanced Care Planning with patient two living children Jose as well as Dougie Cholin. The diagnosis, prognosis and goals of care were discussed. Appropriate forms and documentation to accomplish the goals of care were discussed. All questions were answered. Tito relayed that his dad made eye contact earlier today and was able to communicate by squeezing Maria Fernanda hand. When asked if he would desire surgery Tito requested that his father squeeze his hand, he did not. Tito then asked his father to squeeze his hand if he wanted to be kept comfortable and his father did squeeze his hand. 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 Jose state that after visiting, discussing with family, and prayer they are electing to transition care to comfort measures. Requesting to [facility] sitio to hospice and compassionately extubate Mr Lester. *DNAR *Hospice eval /Requested Hospice [facility] no hospice voiced as second choice. CM consult placed. *Compassionately extubate after admission to hospice. *Communicated with Dr Jimenes and Dr Pantoja Emotional support and Therapeutic listening. Time Spent (mins): 75
[2020-05-24 17:30] VITALS: TEMP 98.5
--- NOTE | 2020-05-24 18:52 | PRG ---
DATE OF SERVICE: 05/24/2020 Navjot Lester's family has apparently decided no surgery. Overall, his clinical condition is unchanged. His white count is 8.4, hemoglobin is 11, platelets are 248. He has mild hyperchloremic acidosis. His renal functions improved. Apparently, family wants him extubated and Hospice to be consulted. We will sign off. Job ID: [id number]
--- NOTE | 2020-05-26 18:16 | PDOC.DS.DS ---
Provider - Provider Date of Admission: 05/15/20 19:00 Date of Discharge: 05/24/20 Admitting Provider: Terell Cantrell Consultations: Other (Hospice) Primary Care Physician: NO PCP PROVIDER Course - Hospital Course Hospital Course: Respiratory therapy requiring mechanical ventilation due to persistent respiratory failure due to acute on chronic decompensated heart failure. Cardiology and pulmonary service follow. At some point considered for possible surgical intervention (CABG) but per family wishes patient to be admitted to hospice care. # Respiratory failure: Family opted for hospice care. In setting of decompensated CHF. Pulmonary directing mechanical ventilation and sedation. Per discussion with balance assembler considering cardiac cath to rule out significant valvulopathy was undertaken. Vascular surgery consulted for possible CABG. Per family wishes patient transitioned to hospice. Hospitalist service to transfer care to hospice. Resuscitation Status: 05/24/20 14:42 Resuscitation Status Routine Co-Sign Provider: Resuscitation Status: DNAR: NO Resuscitation Discussed with: son Additional comments: elmoetn son and daughter agreed to no resuscitation measures. Consent signed and placed on chart - Labs Lab Results: 05/24/20 04:08 05/24/20 04:08 Microbiology - Entire Visit 05/21/20 22:33 Venous blood - Right Arm Blood Culture - Preliminary NO GROWTH AT 48 HOURS 05/21/20 22:18 Venous blood - Left Arm Blood Culture - Preliminary NO GROWTH AT 48 HOURS 05/21/20 23:20 Urine stone catheter Urine Culture - Final NO GROWTH AT 48 HOURS 05/17/20 08:55 Pleural fluid Body Fluid Culture - Final 05/15/20 18:58 Venous blood - Right Arm Blood Culture - Final NO GROWTH IN 5 DAYS 05/15/20 18:58 Venous blood - Right Hand Blood Culture - Final NO GROWTH IN 5 DAYS - Physical Exam Vitals: Weight Admit Weight 165 lb Weight 167 lb 1.766 oz Most Recent Monitor Data Heart Rate from ECG 100 NIBP 138/83 NIBP BP-Mean 101 Respiration from ECG 0 SpO2 97 Physical Exam: The patient was seen and examined on the day of discharge. Problem - Discharge Plan Assessment: Currently on mechanical ventilation due to persistent respiratory failure due to acute on chronic decompensated heart failure. Cardiology and pulmonary service follow. At some point considered for possible surgical intervention (CABG) but per family wishes patient to be admitted to hospice care. # Respiratory failure: Family opted for hospice care. In setting of decompensated CHF. Pulmonary directing mechanical ventilation and sedation. Per discussion with balance assembler considering cardiac cath to rule out significant valvulopathy was undertaken. Vascular surgery consulted for possible CABG. Per family wishes patient transitioned to hospice. Hospitalist service to transfer care to hospice. # NSTEMI: Type II [place] due to demand ischemia. Continue with ASA plus statin. Cardiology follows. Possible cardiac cath for further evaluation. # Pleural effusion: Per above plan. Pulmonary service follows. # CHIO on CKD: In setting of cardiorenal syndrome. Careful use of diuresis. Continue with inotropic support to help with renal perfusion. Nephrology follows. DISPOSITION: Remains critically ill. Possible cardiac cath being planned. Continue with close monitoring in the ICU. Plan - Discharge Medications Allergies: No Known Allergies Allergy (Unverified 05/15/20 19:40) - Follow up Plan Referrals: PROVIDER,NO PCP [Primary Care Provider] - Disposition: HOSPICE MEDICAL FACILITY Quality - Care Measures CORE MEASURES:: N/A (Hospice care)
--- NOTE | 2020-05-27 01:34 | PQF ---
Dear : Orville Dixon Date 05/27/2020 Please exercise your independent, professional judgment in responding to the clarification form. Clinical indicators are provided on the bottom of this form for your review Can you please further clarify if Sepsis is ruled in or ruled out? Sepsis [ ] Ruled in diagnosis [ ] Continue to treat [ ] Resolved [ X ] Ruled out diagnosis [ ] Improving [ ] Cannot rule out diagnosis [ ] Other diagnosis [ ] Unable to determine Physician Signature: Date/Time: For continuity of documentation, please document condition throughout progress notes and discharge summary. Thank You. To be completed by CDI/Coding staff for physician review: Present Clinical Indicators - Signs / Symptoms / Labs Results and Location in Medical Record [ x ] VS: BP 190/159, Pulse 157, RR 29, T: 98.1 ED Provider pg.1 [ x ] Tachycardic ED Provider pg.2 [ x ] Heavy work of breathing with tachypnea H and P pg.1 [ x ] Sepsis secondary to pneumonia H and P pg.4 [ x ] CHIO H and P pg.4 [ x ] WBC: 12.6H, 9.7, 10.0, 11.0H, 8.5, 8.7, 9.5 Laboratory [ x ] Lactic acid: 8.6H, 1.4, 0.8 Laboratory [ x ] Pneumonia, ruled out Hospitalist PN pg. 5 12 [ x ] Pneumonia diagnosis excluded Hospitalist PN pg. 5 05/21 [ x ] Blood culture no growth at 48 hours Microbiology Present Risk Factors Results and Location in Medical Record [ x ] 76 years old H and P pg.1 [ x ] Acute decompensated respiratory failure H and P pg.4 [ x ] Pleura; effusion H and P pg.4 [ x ] NSTEMI H and P pg.4 Present Treatments Results and Location in Medical Record [ x ] Pulmonary Consult Dr. Jimense 05/17 [ x ] Intubation with vent ED Provider [ x ] IV Fluids MAR [ x ] IV Antibiotics MAR CDS/Medical Insurance Coding Specialist Signature: Tony Dyer Phone #: [phone] Date 05/27/2020 This is a permanent part of the Medical Record [facility]
== END 2020-05-24 17:32 | disposition hospice, inpatient (51) | DRG 207 ==
LOC: ERS 17:52 → CCU 19:00
PROVIDERS: ADMIT Internal Medicine; ATTEND Internal Medicine
PROC: 0BH17EZ Insertion of Endotracheal Airway into Trachea, Via Natural or Artificial Opening (ICD-10-PCS; principal; 2020-05-15)
PROC: 5A1955Z Respiratory Ventilation, Greater than 96 Consecutive Hours (ICD-10-PCS; 2020-05-15)
PROC: 0D9670Z Drainage of Stomach with Drainage Device, Via Natural or Artificial Opening (ICD-10-PCS; 2020-05-15)
PROC: 0W993ZZ Drainage of Right Pleural Cavity, Percutaneous Approach (ICD-10-PCS; 2020-05-18)
PROC: B2111ZZ Fluoroscopy of Multiple Coronary Arteries using Low Osmolar Contrast (ICD-10-PCS; 2020-05-23)
PROC: B2151ZZ Fluoroscopy of Left Heart using Low Osmolar Contrast (ICD-10-PCS; 2020-05-23)
PROC: 4A023N7 Measurement of Cardiac Sampling and Pressure, Left Heart, Percutaneous Approach (ICD-10-PCS; 2020-05-23)
PROC: 02HV33Z Insertion of Infusion Device into Superior Vena Cava, Percutaneous Approach (ICD-10-PCS; 2020-05-23)
PROC: 0BP1XDZ Removal of Intraluminal Device from Trachea, External Approach (ICD-10-PCS; 2020-05-24)
DX: J96.01 Acute respiratory failure with hypoxia (principal); N17.0 Acute kidney failure with tubular necrosis; I21.A1 Myocardial infarction type 2; I50.23 Acute on chronic systolic (congestive) heart failure; E87.2 Acidosis; E87.3 Alkalosis; I42.9 Cardiomyopathy, unspecified; I13.0 Hypertensive heart and chronic kidney disease with heart failure and stage 1 through stage 4 chronic kidney disease, or unspecified chronic kidney disease; J91.8 Pleural effusion in other conditions classified elsewhere; Z66 Do not resuscitate; Z51.5 Encounter for palliative care; Z20.828 Contact with and (suspected) exposure to other viral communicable diseases; I25.10 Atherosclerotic heart disease of native coronary artery without angina pectoris; N18.30 Chronic kidney disease, stage 3 unspecified; Z78.1 Physical restraint status; Z79.82 Long term (current) use of aspirin; Z79.899 Other long term (current) drug therapy
CPT/HCPCS: 31500; 36415; 36416; 36556; 36600; 51702; 70450; 71045; 71250; 76770; 76942; 80048; 80053; 80061; 81001; 82550; 82553; 82805; 82945; 83036; 83605; 83615; 83690; 83735; 83880; 84100; 84157; 84484; 85007; 85025; 85027; 85060; 85379; 87040; 87070; 87086; 87205; 87635; 88112; 88305; 89051; 93005; 93306; 93458; 94002; 94003; 94660; 96361; 96365; 96366; 96367; 96372; 96375; 99152; 99292; J0456; J0696; J1100; J1250; J1644; J1650; J1940; J2060; J2250; J2270; J2405; J3010; J3475; J3490; J7050; J7611; J7620; Q9967; S0028; U0002; U0003

== ENCOUNTER 2020-05-24 17:58 | Inpatient (IN) | payer MEDICARE, OTHER ==
[2020-05-24] MEDS ORDERED: Morphine 4 MG/ML VIAL ONE (18:08)
--- NOTE | 2020-05-24 18:28 | PDOC.BPN ---
- Brief Progress Note Encounter Date: 05/24/20 Encounter Time: 18:00 Brief H&P HPI: This 79 yo M was admitted to CCU on 05/15/2020 due to acute on chronic decompensated congestive heart failure. He was initially thought to have pneumonia, but this was ruled out. Covid was negative. Patient also had CHIO on CKD. The patient had a cath and CV surg consultation. CV Surg offered CABG, but the family made decision on behalf of the patient to forego surgical intervention. The family chose to transition to inpatient hospice care. He was discharged from the CCU's care and admitted to us. ROS: unobtainable due to intubation. Allergies: NKDA PMHx: see HPI Physical Exam: Gen: NAD HEENT: NCAT Resp: on ventilator taking spontaneous breaths. CV: pulses present Neuro: intubated/sedated. A/P: 1. Transition to hospice care for acute on chronic decompensated heart failure - inpatient hospice orders placed on paper due to [facility] down - plan for compassionate extubation - once extubated, the patient will be monitored briefly then transported to [facility] [place] for the remainder of his care. Code: DNAR, OOH DNR was signed. This patient was discussed with Dr. Locke, who agrees with the plan.
[2020-05-24] MEDS ORDERED: Lorazepam 2 MG/ML VIAL ONE (18:30)
[2020-05-24 18:55] VITALS: BMI 27.6
[2020-05-24] MEDS ORDERED: Morphine 4 MG/ML VIAL SLOW IVP PRN (19:56)
[2020-05-24] MEDS ORDERED: Scopolamine 1.5 mg/72 hour Patch TOP PRN ×2 (20:00)
[2020-05-24 20:27] VITALS: TEMP 98.1
[2020-05-24] MEDS ORDERED: Hyoscyamine Sulfate SL 0.125 mg Tablet SL PRN ×2 (20:33→20:45)
[2020-05-24] MEDS ORDERED: chlorproMAZINE HCl 25 MG in Sodium Chloride 0.9% 50 ML IVPB PRN (20:45)
[2020-05-24] MEDS ORDERED: Acetaminophen 325 MG TAB PO PRN (20:45)
[2020-05-24] MEDS ORDERED: diphenhydrAMINE 50 MG/ML VIAL IVP PRN (20:45)
[2020-05-24] MEDS ORDERED: Ondansetron PF 4 MG/2 ML Vial IVP PRN (20:45)
[2020-05-24] MEDS ORDERED: Loperamide HCl 2 MG CAP PO PRN (20:45)
[2020-05-24] MEDS ORDERED: Acetaminophen 650 MG Suppository PR PRN (20:45)
[2020-05-24] MEDS ORDERED: Haloperidol Lactate 5 MG/ML VIAL SLOW IVP PRN (20:45)
[2020-05-24] MEDS ORDERED: Promethazine HCl 25 MG SUPP PR PRN (20:45)
[2020-05-24] MEDS ORDERED: chlorproMAZINE HCl 50 MG/2 ML AMP IM PRN ×2 (20:45)
[2020-05-24] MEDS ORDERED: Lorazepam 1 MG TAB PO PRN ×2 (20:45)
[2020-05-24] MEDS ORDERED: Lorazepam 2 MG/ML VIAL SLOW IVP PRN ×2 (20:45)
[2020-05-24] MEDS ORDERED: Ondansetron ODT 4 MG TAB PO PRN (20:45)
[2020-05-24] MEDS ORDERED: diphenhydrAMINE 25 MG CAP PO PRN (20:45)
[2020-05-24] MEDS ORDERED: Zolpidem Tartrate 5 MG TAB PO PRN (20:45)
[2020-05-24] MEDS ORDERED: Senokot 8.6 MG TAB PO PRN (20:45)
[2020-05-24] MEDS ORDERED: Morphine IR Tab 15 MG TAB PO PRN (20:45)
[2020-05-24] MEDS ORDERED: ALPRAZolam 0.25 MG TAB PO PRN (20:45)
[2020-05-24] MEDS ORDERED: Morphine 10 MG/0.5 ML ORAL SYRINGE SL PRN (20:45)
[2020-05-24] MEDS ORDERED: Milk Of Magnesia 30 ML UDCUP PO PRN (20:45)
[2020-05-24] MEDS ORDERED: Ibuprofen 200 MG TAB PO PRN (20:56)
== END 2020-05-24 21:10 | disposition hospice, inpatient (51) | DRG 951 ==
LOC: CCU 17:58
PROVIDERS: ADMIT Family Medicine; ATTEND Family Medicine
DX: Z51.5 Encounter for palliative care (principal); J96.00 Acute respiratory failure, unspecified whether with hypoxia or hypercapnia; A41.9 Sepsis, unspecified organism; J18.9 Pneumonia, unspecified organism; I21.4 Non-ST elevation (NSTEMI) myocardial infarction; N17.9 Acute kidney failure, unspecified; I50.9 Heart failure, unspecified; Z66 Do not resuscitate
CPT/HCPCS: J2060; J2270